=== PATIENT | female | born 1980 | race Caucasian/White ===

== ENCOUNTER 2017-04-06 13:18 | Emergency (ER) | payer MEDICARE, OTHER ==
--- NOTE | 2017-04-06 16:31 | DIAGNOSTIC IMAGING REPORT ---
PROCEDURE: CT ABDOMEN/PELVIS W/O CONTRAST INDICATION: FLANK PAIN TECHNIQUE: Axial CT images were obtained through the abdomen and pelvis without IV contrast. Coronal and sagittal reformations were created. COMPARISON: 08/14/2011 FINDINGS: 2 mm nonobstructing intrarenal calcification in the lower pole of the right kidney. No hydronephrosis, hydroureter, or ureteral calcification. No calcifications in the urinary bladder. Clear lung bases. Normal sized heart. No hiatal hernia. The unenhanced appearance of the liver, gallbladder, adrenal glands, kidneys, pancreas and spleen is normal. The abdominal aorta is normal in its course and caliber. There are no suspicious calcifications, retroperitoneal adenopathy or masses. The stomach, upper bowel loops, and mesentery are normal. Intact anterior abdominal wall. No free fluid or inflammation. Tiny vascular phleboliths in the pelvis. Tubal ligation clips are present. The left one is within the adnexa, the right one is between the uterus and urinary bladder at the midline (off of the of the fallopian tube). The unenhanced appearance of the uterus, ovaries, urinary bladder, pelvic vessels, and pelvic bowel loops is normal. Normal appendix. No suspicious calcifications, free pelvic fluid or mass. Intact osseous structures. Surgical clips in the left inguinal region. IMPRESSION: 1. 2 mm nonobstructing right lower pole intrarenal calculus. 2. No evidence of obstructive uropathy. 3. Status post tubal ligation. 4. Findings called to the emergency room. All CT scans at this facility use dose modulation, iterative reconstruction, and/or weight-based dosing when appropriate to reduce radiation dose to as low as reasonably achievable.
--- NOTE | 2017-04-06 16:33 | ED NURSING NOTES ---
Clinical Report - Nurses [facility] [address] [place] [address] 04/06/2017 13:20 Patient: MIRTHA ALEXANDER TRIAGE Triage time 13:26 13:Apr 06 2017. Acuity: LEVEL 3. Chief Complaint: ABDOMINAL PAIN and NAUSEA. Alert. No acute distress. SEPSIS SCREEN: Sepsis Screen. Negative (no infection suspected/documented). --13:34 Luís Blanchard R.N. 13:26 04/06/17. BP: 116/89. HR: 93. RR: 16. O2 saturation: 98% on room air. Temp: 98.3 F. Pain level now: 05/06. --13:34 Luís Blanchard R.N. Weight: 74.8 kg stated. Height/Length: 64 inches Per Patient. BMI: 28.3. --13:25 Luís Blanchard R.N. Medications Clonazepam. --13:30 Luís Blanchard R.N. Macrobid Oral. --13:30 Luís Blanchard R.N. Lomotil Oral. --13:57 Luís Blanchard R.N. Allergies Topamax. --13:29 Luís Blanchard R.N. BuSpar. --13:29 Luís Blanchard R.N. plastic tape . --13:29 Luís Blanchard R.N. Toradol. --13:29 Luís Blanchard R.N. Morphine IV. --13:29 Luís Blanchard R.N. Sulfa Antibiotics. --13:30 Luís Blanchard R.N. NSAIDs. --13:30 Luís Blanchard R.N. History Arrived by private vehicle. Historian: patient. Accompanied by friend. This started today. ( Pt has been "feeling under the weather" the past week. Pt is very fatigued. Reports R-sided flank pain that wraps around to the front of her abdomen, beneath her ribs.). PAST MEDICAL HX: Immunizations: up-to-date. Last normal menstrual period- March 27. SOCIAL HX: Light tobacco smoker. Alcohol use; consumes beer occasionally. History of drug use: marijuana. No recent travel. No infectious disease exposure. No known contact with a sick individual. ABUSE ASSESSMENT: Abuse assessment: The patient was asked "Do you feel safe in your home?". No report of abuse. SELF HARM ASSESSMENT: A self harm assessment was performed. The patient answered "no" to the question "Have you recently felt down, depressed, or hopeless?". FALL RISK ASSESSMENT: Fall risk assessment completed. No fall risk identified. NUTRITIONAL RISK ASSESSMENT: The nutritional risk assessment revealed no deficiencies. FUNCTIONAL ASSESSMENT: Functional assessment: no impairments noted. LEARNING NEEDS ASSESSMENT: The learning needs assessment revealed no barriers. SKIN INTEGRITY ASSESSMENT: Skin integrity risk assessment completed. No skin integrity risk identified. --13:34 Luís Blanchard R.N. ( Pt has been treated outpt for a UTI this past week, on Macrobid.). --14:02 Luís Blanchard R.N. PROBLEMS: Irritable Bowel Syndrome. Gastritis. Auto immune problem. Palpitations. Dental Pain. Dehydration. Supraventricular arrhythmia. Changed Mental Status. Cervical Strain. Myofascial Strain. Contusion. Tetanus Status. Allergic Reaction. . Seizure. Urinary Calculi. Pyelonephritis. Vaginal Bleeding. Pelvic Pain. UTI - Urinary Tract Infection. ADD - Attention Deficit Disorder. Depression. Post tramatic stress. Anxiety Reaction. Constipation. Seizure Disorder. Immunizations. Abdominal Pain. Nephrolithiasis. LNMP - Last Normal Menstrual Period. Endometriosis. Degenerative Joint Disease. Ovarian Cyst. --13:29 Luís Blanchard R.N. ADDITIONAL SURGERIES: Appendectomy. Bowel Surgery. Breast reducion. . Cysts removed from ovary. Endometriosis cauterizations. Fracture Repair. Lithotripsy. Tonsillectomy & Adenoidectomy. Vericose veins removed bilateral legs. --13:32 Luís Blanchard R.N. Interventions ID and allergy band on patient. To treatment room. --13:34 Luís Blanchard R.N. PHYSICAL ASSESSMENT Ambulatory to room. GENERAL / NEURO / PSYCH: Alert. Oriented X 4. Appears in distress. RESPIRATORY: Respirations not labored. CVS: Capillary refill less than 2 seconds. GI / : The patient has had nausea. Abdominal tenderness. Guarding present. No diarrhea. SKIN: Skin is pale. Skin is diaphoretic. --13:46 Luís Blanchard R.N. GI / : ( Pt reports dysuria and that urine has a foul smelling odor.). --13:59 Luís Blanchard R.N. NURSING PROGRESS NOTES 13:45 04/06/2017 Site #1 started via IV in the left antecubital space with an 20g angiocath, with aseptic technique and good blood return; one attempt. Blood drawn: rainbow set. Labeled in the presence of the patient and sent to the lab. Saline lock flushed with 10 mL saline. --13:45 Luís Blanchard R.N. The plan of care for this patient has been created. Patient gowned. Head of bed elevated. Reassurance given. Two patient identifiers checked. Call light placed in reach. Bed placed in lowest position. Patient ready for evaluation- chart flagged and OIL TANKER CAPTAIN notified. ( Pt sitting up, in obvious discomfort, small engine mechanic at bedside.). --13:47 Luís Blanchard R.N. 13:56 04/06/2017 Started bag #1 1000 mL IV Fluids IV NS (Saline); bolus of 1000 mL wide open via site #1. Allergies verified and confirmed 5 rights. IV patency established. IV site checked: no pain, redness, or swelling. IV flushed thoroughly pre- and post-medication administration. Completed per protocol. --13:56 Luís Blanchard R.N. 13:56 04/06/2017 Zofran (Ondansetron HCl) IVP 4 mg given over 1 minute(s) via site #1. Allergies verified and confirmed 5 rights. IV patency established. IV site checked: no pain, redness, or swelling. IV flushed thoroughly pre- and post-medication administration. IVP given by RN. --13:56 Luís Blanchard R.N. 14:32 04/06/2017 Benadryl (DiphenhydrAMINE HCl) IVP 50 mg given over 2 minute(s) via site #1. Allergies verified, confirmed 5 rights and sedative warning given to the patient and patient's small engine mechanic. IV patency established. IV site checked: no pain, redness, or swelling. IV flushed thoroughly pre- and post-medication administration. IVP given by RN. --14:32 Luís Blanchard R.N. 14:32 04/06/17. BP: 108/73. HR: 77. RR: 18. O2 saturation: 100% on room air. Pain level now: 06/05. --14:32 Luís Blanchard R.N. Patient transported to [place] by stretcher with tech. (14:37 Apr 06 2017). ( Pt reporting her pain is slowly increasing, verified NSAID allergy, Pt stated that in the past she has been able to tolerate Toradol with Benadryl. Medications administered, VSS.). --14:38 Luís Blanchard R.N. 14:32 04/06/2017 Zofran IVP Response: no adverse reaction. --14:57 Luís Blanchard R.N. 14:36 04/06/2017 Toradol IVP 30 mg given over 2 minute(s) via site #1. Allergies verified and confirmed 5 rights. IV patency established. IV site checked: no pain, redness, or swelling. IV flushed thoroughly pre- and post-medication administration. IVP given by RN. --14:36 Luís Blanchard R.N. Patient returned from [place] by stretcher with tech. (15:Apr 06 2017). --15:01 Luís Blanchard R.N. ( Pt resting in bed, IVF finished infusing, Pt reports she feels the same, denies current needs.). --15:03 Luís Blanchard R.N. 15:03 04/06/2017 IV Fluids IV NS Discontinued: bag #1 infused. Total amount infused: 1000 mL. IV patency established. IV site checked: no pain, redness, or swelling. IV flushed thoroughly. --15:03 Luís Blanchard R.N. <<STRICKEN ENTRY-- Hemoccult test positive. control room helper check passed. (POC test reference range: negative). Critical value relayed to ED by ZANDER Mendoza. Critical value received by Luís TAVERAS. Hgb: 4.9. Hct: 14.6. Critical value read back. Verified lab result. ED physician notifed of critical value. Orders were received. --15:37 Luís Blanchard R.N. --END STRIKE>> Charted On Wrong Patient --15:38 Luís Blanchard R.N. ( Pt resting in bed, small engine mechanic at bedside, VSS, waiting for results of CT and blood work, Pt denies needs, ice pack provided per Pt's request.). --15:49 Luís Blanchard R.N. 15:48 04/06/17. BP: 111/69. HR: 63. RR: 16. O2 saturation: 100%. Pain level now: 05/06. --15:49 Luís Blanchard R.N. DISPOSITION / DISCHARGE Condition at departure: improved and stable. The goals identified in the patient's plan of care were met. No learning barriers present. Discharge instructions provided and reviewed with small engine mechanic and the patient. Reviewed warnings (Pt instructed not to drive while taking [place] or today d/t Benadryl administraion). Reviewed medication(s) side effects, precautions, dosing and course information. Prescription(s) given to the patient. Reviewed referral to a primary care physician for followup. Patient and small engine mechanic verbalized understanding. Written instructions provided in [place]. The patient was discharged by the nurse practitioner. She was discharged home and accompanied by small engine mechanic. She left the Emergency Department ambulatory and via private vehicle. Automobile Sales Consultant driving. ( Pt dc'd in stable condition, ambulatory, VSS, verbalized understanding of DC instructions.). --16:48 Luís Blanchard R.N. Departure time: 16:48 Apr 06 2017. --16:48 Luís Blanchard R.N. 16:48 04/06/17. BP: 121/76. HR: 69. RR: 14. O2 saturation: 98% on room air. Temp: 98 F. Pain level now: 04/05. --16:48 Luís Blanchard R.N. Locked/Released at 04/06/2017 18:01 by Luís Blanchard R.N.
--- NOTE | 2017-04-06 16:33 | ED ORDER SUMMARY ---
..... Patient: MIRTHA ALEXANDER OrderSheet [facility] VisitID: [id number] [address] [place] [address] 36y, F Registration Date/Time: 04/06/2017 ORDER SHEET Weight: 74.8 kg (stated) Allergies: Topamax, BuSpar, plastic tape , Toradol, Morphine IV, Sulfa Antibiotics, NSAIDs GENERAL ORDERS: CBC w Diff Urgent (13:35 04/06/2017 HBivens A.R.N.P.) (Ack 13:41 OSnell) (13:45 MCook R.N.) CMP Urgent (13:35 04/06/2017 HBivens A.R.N.P.) (Ack 13:41 OSnell) (13:45 MCook R.N.) UA-Culture if indicated Urgent (13:35 04/06/2017 HBivens A.R.N.P.) (Ack 13:41 OSnell) (13:45 MCook R.N.) Amylase Urgent (13:35 04/06/2017 HBivens A.R.N.P.) (Ack 13:41 OSnell) (13:45 MCook R.N.) Lipase Urgent (13:35 04/06/2017 HBivens A.R.N.P.) (Ack 13:42 OSnell) (13:45 MCook R.N.) Urine Urgent (13:35 04/06/2017 HBivens A.R.N.P.) (Ack 13:42 OSnell) (13:45 MCook R.N.) Urine Drug Screen Urgent (13:35 04/06/2017 HBivens A.R.N.P.) (Ack 13:42 OSnell) (13:45 MCook R.N.) CT Abd/Pel wo Cont Urgent (14:20 04/06/2017 HBivens A.R.N.P.) (Ack 14:23 OSnell) (15:03 MCook R.N.) MEDICATION ORDERS: IV FLUIDS: IV NS : initial bolus 1000 mL (1000 mL/hr), then none - (NOW) (13:35 04/06/2017 HBivens A.R.N.P.) (13:56 MCook R.N.) Zofran IV 4 mg (NOW) (13:35 04/06/2017 HBivens A.R.N.P.) (13:56 MCook R.N.) IV Saline Lock (13:35 04/06/2017 HBivens A.R.N.P.) (13:45 MCook R.N.) Toradol IV 30 mg (NOW) (14:27 04/06/2017 HBivens A.R.N.P.) (14:36 MCook R.N.) Benadryl IV 50 mg (NOW) (14:27 04/06/2017 HBivens A.R.N.P.) (14:32 MCook R.N.) ORDER SHEET NOTES: [Electronically signed by Luís Blanchard R.N. (18:01 04/06/2017)] [Electronically signed by Teri ReyesR.N.P. (18:45 04/06/2017)] [Electronically locked/signed by Luís Blanchard R.N. (18:01 04/06/2017)]
--- NOTE | 2017-04-06 16:33 | ED CLINICAL REPORT ---
Clinical Report - Physicians/Mid Levels [facility] [address] [place] [address] 04/06/2017 13:20 Patient: MIRTHA ALEXANDER Time Seen: 13:30; initial patient contact, initial documentation, patient care assumed. Arrived- By private vehicle. Historian- patient. HISTORY OF PRESENT ILLNESS Chief Complaint: ABDOMINAL PAIN. At its maximum, severity described as severe. When seen in the E.D., severity described as severe. Modifying factors. Not worsened by anything. Not relieved by anything. It is described as "pain" and it is described as located in the right flank and the right abdomen and right lower quadrant and radiating to the abdomen (pain starts in R flank area and wraps around to abd). This started today and is still present. It was abrupt in onset. The patient has had nausea. No loss of appetite, vomiting or diarrhea. No additional abdominal pain. No recent travel. Similar symptoms previously: Occasionally, as bad. ( feels same as when she had kidney stone or infection). Recent medical care: Not recently seen/assessed. REVIEW OF SYSTEMS No constipation, black stools, hematemesis, difficulty with urination or pain with urination. No urinary frequency, bloody stools, fever, chest pain or difficulty breathing. Denies current . urine has foul smell, 'mediciney' or 'sulfa' like and it was darker than normal. All systems otherwise negative, except as recorded above. PAST HISTORY See nurses notes. PROBLEMS: Irritable Bowel Syndrome. Gastritis. Auto immune problem. Palpitations. Dental Pain. Dehydration. Supraventricular arrhythmia. Changed Mental Status. Cervical Strain. Myofascial Strain. Contusion. Tetanus Status. Allergic Reaction. . Seizure. Urinary Calculi. Pyelonephritis. Vaginal Bleeding. Pelvic Pain. UTI - Urinary Tract Infection. ADD - Attention Deficit Disorder. Depression. Post tramatic stress. Anxiety Reaction. Constipation. Seizure Disorder. Immunizations. Abdominal Pain. Nephrolithiasis. LNMP - Last Normal Menstrual Period. Endometriosis. Degenerative Joint Disease. Ovarian Cyst. --13:29 Luís Blanchard R.N. SOCIAL HISTORY Light tobacco smoker. Occasional alcohol use. History of occasional drug use: marijuana. No recent travel. Is a local resident. FAMILY HISTORY Negative. ADDITIONAL NOTES The nursing notes have been reviewed with agreement regarding the chief complaint, HPI, ROS, PMH and patient medications and allergies. PHYSICAL EXAM Vital Signs: 04/06/2017 13:26 BP: 116/89. HR: 93. RR: 16. O2 saturation: 98%. Temp: 98.3 F. Pain level now: 05/06. Have been reviewed as normal and appear to be correct. Appearance: Alert. Oriented X3. No acute distress. Eyes: Pupils equal, round and reactive to light. Eyes normal inspection. Neck: Normal inspection. Neck supple. CVS: Normal heart rate and rhythm. Heart sounds normal. Pulses normal. Respiratory: No respiratory distress. Breath sounds normal. Chest nontender. Abdomen: Soft and nontender. Bowel sounds normal. No organomegaly. No mass. Back: Abnormal inspection. Mild CVA tenderness on the right. Skin: Skin warm and dry. Normal skin color. No rash. Normal skin turgor. Extremities: Extremities exhibit normal ROM. No lower extremity edema. Neuro: Oriented X 3. No motor deficit. No sensory deficit. LABS, X-RAYS, AND EKG Abdominal CT: No acute disease. IMPRESSION: 1. 2 mm nonobstructing right lower pole intrarenal calculus. 2. No evidence of obstructive uropathy. 3. Status post tubal ligation. 4. Findings called to the emergency room. All CT scans at this facility use dose modulation, iterative reconstruction, and/or weight-based dosing when appropriate to reduce radiation dose to as low as reasonably achievable. Electronically Final signed by:Sury Ingram MD 04/06/2017 4:26:35 PM. The study was interpreted by the radiologist and discussed with the radiologist. Interpretation time: 1630. Laboratory Tests: UA-Culture if indicated: (BRIGIDA: 04/06/2017 13:30) ( MsgRcvd 04/06/2017 13:51) Final results Test Result Flag Units (Reference) URINE COLOR YELLOW URINE APPEARANCE SL CLOUDY URINE GLUCOSE NEGATIVE (NEGATIVE) URINE BILIRUBIN 3+ (NEGATIVE) URINE BILIRUBIN ICTOTEST POSITIVE (NEGATIVE) URINE KETONE NEGATIVE (NEGATIVE) URINE SPECIFIC GRAVITY 1.015 (1.010-1.030) URINE PH 6.5 (5.0-8.0) URINE PROTEIN NEGATIVE (NEGATIVE) URINE UROBILINOGEN 0.2 EU/dL (0.2-1.0) URINE NITRITE NEGATIVE (NEGATIVE) URINE BLOOD NEGATIVE (NEGATIVE) URINE LEUK ESTERASE NEGATIVE (NEGATIVE) URINE RBC NONE SEEN rbc/hpf (0-1) URINE WBC 1-3 wbc/hpf (0-1) URINE EPITHELIAL CELLS 1-3 EPI/hpf (0-5) URINE BACTERIA MODERATE (2+ TO 3+) (NONE SEEN) URINE COMMENT CULTURE INDICATED URINE CULTURES ARE SET-UP BASED ON THE FOLLOWING CRITERIA:POSITIVE NITRITEPOSITIVE LEUKOCYTE ESTERASEGREATER THAN 10 WHITE BLOOD CELLSMODERATE (2+) OR GREATER BACTERIA Urine: (BRIGIDA: 04/06/2017 13:30) ( [facility] 04/06/2017 13:45) Final results Test Result Flag Units (Reference) URINE NEGATIVE CBC w Diff: (BRIGIDA: 04/06/2017 13:45) ( [facility] 04/06/2017 13:55) Final results Test Result Flag Units (Reference) WHITE BLOOD COUNT 8.2 K/uL (4.5-11.5) RED BLOOD COUNT 4.02 M/uL (4.00-5.20) HEMOGLOBIN 12.4 gm/dL (12.0-16.0) HEMATOCRIT 37.1 % (36.0-46.0) MEAN CELL VOLUME 92 fL (80-100) MEAN CORPUSCULAR HGB 31 pg (26-34) MEAN CORPUSCULAR HGB CONC 34 g/dL (31-37) RED CELL DISTRIBUTION WIDTH 13.6 % (11.6-14.8) PLATELET COUNT 436 H K/uL (150-400) NEUTROPHIL % 61.2 % (50-75) LYMPH % 28.4 % (25-40) MONO % 7.3 % (3-14) EOSINOPHIL % 2.6 % (0-4) BASOPHIL % 0.5 % (0-2) Urine Drug Screen: (BRIGIDA: 04/06/2017 13:30) ( MsgRcvd 04/06/2017 13:59) Final results Test Result Flag Units (Reference) AMPHETAMINE/METHAMPHETAMINE NEGATIVE (NEGATIVE) BARBITURATE NEGATIVE (NEGATIVE) BENZODIAZEPINE NEGATIVE (NEGATIVE) CANNABINOID POSITIVE H (NEGATIVE) COCAINE NEGATIVE (NEGATIVE) ECSTASY NEGATIVE (NEGATIVE) METHADONE NEGATIVE (NEGATIVE) OPIATE NEGATIVE (NEGATIVE) The urine drug screen is a qualitative screening test fordrug overdose and abuse. All screen results should beconsidered as presumptive.Drugs screened for are as follows:BenzodiazepinesCocaineAmphetamines/MetamphetaminesTHC (Tetrahydrocannabinol)OpiatesBarbituratesEcstasyMethadonePositive results are unconfirmed. For confirmation, notifythe lab for the specimen to be sent to the reference lab.All confirmations must be performed by a differentmethodology.The ingestion of natural herbal and plant productscontaining Ephedra/Ephedra metabolites can produce in urineone or more substances capable of cross reacting withamphetamine/methamphetamine immunoassays. These testsprovide a preliminary result only. A more specificalternative chemical method must be used to obtain aconfirmed analytical result. CMP: (BRIGIDA: 04/06/2017 13:45) ( MsgRcvd 04/06/2017 14:14) Final results Test Result Flag Units (Reference) GLUCOSE 94 mg/dL (70-110) BUN 11 mg/dL (7-18) CREATININE 0.7 mg/dL (0.6-1.3) Estimated GFR >60 mL/min Estimated GFR- >60 mL/min Note: Persistent reduction over 3 months in eGFR<60 mL/min/1.73 m2 defines CKD. Patients with eGFR values>=60 mL/min/1.73 m2 may also have CKD if evidence ofpersistent proteinuria. Additional information may be foundat www.kidney.org. SODIUM 144 mmol/L (136-145) POTASSIUM 4.1 mmol/L (3.5-5.1) CHLORIDE 107 mmol/L (98-107) CARBON DIOXIDE 27 mmol/L (21-32) CALCIUM 8.7 mg/dL (8.5-10.1) TOTAL PROTEIN 7.6 g/dL (6.4-8.2) ALBUMIN 3.6 g/dL (3.3-5.0) BILIRUBIN, TOTAL 0.3 mg/dL (0.0-1.0) ALKALINE PHOSPHATASE 75 U/L (46-116) AST (SGOT) 11 L U/L (15-37) ALT (SGPT) 25 U/L (12-78) LIPASE 156 U/L (73-393) AMYLASE 29 U/L (25-115) . PROGRESS AND PROCEDURES Course of Care: 1419. lab results discussed and tx plan, pt would like to do ct to look for kidney stone 1520. awaiting ct and results. 04/06/2017 15:48 BP: 111/69. HR: 63. RR: 16. O2 saturation: 100%. Pain level now: 6/10. Vital Signs: have been reviewed as normal and appear to be correct. Patient counseled in person regarding the patient's stable condition, test results and diagnosis. 16:31. Differential Diagnosis: I considered gastritis, gastroenteritis, peptic ulcer disease, gastroesophageal reflux disease, mesenteric lymphadenitis, diverticulitis, colon cancer, small bowel obstruction, adhesions, biliary colic, cholecystitis, cholelithiasis, hepatitis, pancreatitis, common bile duct obstruction, cholangitis, urinary tract infection, ureterolithiasis, ovarian cyst, ovarian torsion, , pelvic inflammatory disease and viral syndrome as a possible cause of abdominal pain in this patient. This is a partial list of diagnoses considered. Above considerations are based on history, physical exam, reassessment and laboratory data. Differential diagnosis was discussed with patient. Disposition: Discharged home in good and improved condition (16:33). Condition: good and stable. CLINICAL IMPRESSION Ureterolithiasis (single stone) in the right kidney with renal colic. No hydronephrosis, acute pyelonephritis, urinary tract infection or hematuria. INSTRUCTIONS Drink plenty of fluids for the next 24 hours until better. (strain all urine). Warnings: GENERAL WARNINGS: Return or contact your physician immediately if your condition worsens or changes unexpectedly, if not improving as expected, or if other problems arise. SPECIFICALLY, return if you develop pain in the abdomen or pelvis, fever, the inability to keep fluids down, blood in vomitus, blood in diarrhea, fainting or lightheadedness. Prescription Medications: Zofran 4 mg: Take 1 orally every six hours as needed for nausea/vomiting. Dispense ten (10). No refills. Substitution is permissible. [place] 5 mg / 325 mg tablets: take 1 to 2 orally every 6 hours as needed for pain. Dispense fifteen (15). No refills. Substitution is permissible. Flomax 0.4 mg: take 1 orally every 24 hours. Dispense fifteen (15). No refills. Substitution is permissible. Follow-up: Follow up with your doctor in about two days even if well. Call for an appointment. Summary of care provided to patient. Understanding of the discharge instructions verbalized by patient. (Electronically signed by Teri Reyes A.R.N.P. 04/06/2017 18:45)
--- NOTE | 2017-04-06 16:33 | ED NURSING NOTES ---
Clinical Report - Nurses [address] [place] [address] 04/06/2017 13:20 Patient: MIRTHA ALEXANDER TRIAGE Triage time 13:26 13:Apr 06 2017. Acuity: LEVEL 3. Chief Complaint: ABDOMINAL PAIN and NAUSEA. Alert. No acute distress. SEPSIS SCREEN: Sepsis Screen. Negative (no infection suspected/documented). --13:34 Luís Blanchard R.N. 13:26 04/06/17. BP: 116/89. HR: 93. RR: 16. O2 saturation: 98% on room air. Temp: 98.3 F. Pain level now: 05/06. --13:34 Luís Blanchard R.N. Weight: 74.8 kg stated. Height/Length: 64 inches Per Patient. BMI: 28.3. --13:25 Luís Blanchard R.N. Medications Clonazepam. --13:30 Luís Blanchard R.N. Macrobid Oral. --13:30 Luís Blanchard R.N. Lomotil Oral. --13:57 Luís Blanchard R.N. Allergies Topamax. --13:29 Luís Blanchard R.N. BuSpar. --13:29 Luís Blanchard R.N. plastic tape . --13:29 Luís Blanchard R.N. Toradol. --13:29 Luís Blanchard R.N. Morphine IV. --13:29 Luís Blanchard R.N. Sulfa Antibiotics. --13:30 Luís Blanchard R.N. NSAIDs. --13:30 Luís Blanchard R.N. History Arrived by private vehicle. Historian: patient. Accompanied by friend. This started today. ( Pt has been "feeling under the weather" the past week. Pt is very fatigued. Reports R-sided flank pain that wraps around to the front of her abdomen, beneath her ribs.). PAST MEDICAL HX: Immunizations: up-to-date. Last normal menstrual period- March 27. SOCIAL HX: Light tobacco smoker. Alcohol use; consumes beer occasionally. History of drug use: marijuana. No recent travel. No infectious disease exposure. No known contact with a sick individual. ABUSE ASSESSMENT: Abuse assessment: The patient was asked "Do you feel safe in your home?". No report of abuse. SELF HARM ASSESSMENT: A self harm assessment was performed. The patient answered "no" to the question "Have you recently felt down, depressed, or hopeless?". FALL RISK ASSESSMENT: Fall risk assessment completed. No fall risk identified. NUTRITIONAL RISK ASSESSMENT: The nutritional risk assessment revealed no deficiencies. FUNCTIONAL ASSESSMENT: Functional assessment: no impairments noted. LEARNING NEEDS ASSESSMENT: The learning needs assessment revealed no barriers. SKIN INTEGRITY ASSESSMENT: Skin integrity risk assessment completed. No skin integrity risk identified. --13:34 Luís Blanchard R.N. ( Pt has been treated outpt for a UTI this past week, on Macrobid.). --14:02 Luís Blanchard R.N. PROBLEMS: Irritable Bowel Syndrome. Gastritis. Auto immune problem. Palpitations. Dental Pain. Dehydration. Supraventricular arrhythmia. Changed Mental Status. Cervical Strain. Myofascial Strain. Contusion. Tetanus Status. Allergic Reaction. . Seizure. Urinary Calculi. Pyelonephritis. Vaginal Bleeding. Pelvic Pain. UTI - Urinary Tract Infection. ADD - Attention Deficit Disorder. Depression. Post tramatic stress. Anxiety Reaction. Constipation. Seizure Disorder. Immunizations. Abdominal Pain. Nephrolithiasis. LNMP - Last Normal Menstrual Period. Endometriosis. Degenerative Joint Disease. Ovarian Cyst. --13:29 Luís Blanchard R.N. ADDITIONAL SURGERIES: Appendectomy. Bowel Surgery. Breast reducion. . Cysts removed from ovary. Endometriosis cauterizations. Fracture Repair. Lithotripsy. Tonsillectomy & Adenoidectomy. Vericose veins removed bilateral legs. --13:32 Luís Blanchard R.N. Interventions ID and allergy band on patient. To treatment room. --13:34 Luís Blanchard R.N. PHYSICAL ASSESSMENT Ambulatory to room. GENERAL / NEURO / PSYCH: Alert. Oriented X 4. Appears in distress. RESPIRATORY: Respirations not labored. CVS: Capillary refill less than 2 seconds. GI / : The patient has had nausea. Abdominal tenderness. Guarding present. No diarrhea. SKIN: Skin is pale. Skin is diaphoretic. --13:46 Luís Blanchard R.N. GI / : ( Pt reports dysuria and that urine has a foul smelling odor.). --13:59 Luís Blanchard R.N. NURSING PROGRESS NOTES 13:45 04/06/2017 Site #1 started via IV in the left antecubital space with an 20g angiocath, with aseptic technique and good blood return; one attempt. Blood drawn: rainbow set. Labeled in the presence of the patient and sent to the lab. Saline lock flushed with 10 mL saline. --13:45 Luís Blanchard R.N. The plan of care for this patient has been created. Patient gowned. Head of bed elevated. Reassurance given. Two patient identifiers checked. Call light placed in reach. Bed placed in lowest position. Patient ready for evaluation- chart flagged and SERVICES MGR notified. ( Pt sitting up, in obvious discomfort, keypuncher at bedside.). --13:47 Luís Blanchard R.N. 13:56 04/06/2017 Started bag #1 1000 mL IV Fluids IV NS (Saline); bolus of 1000 mL wide open via site #1. Allergies verified and confirmed 5 rights. IV patency established. IV site checked: no pain, redness, or swelling. IV flushed thoroughly pre- and post-medication administration. Completed per protocol. --13:56 Luís Blanchard R.N. 13:56 04/06/2017 Zofran (Ondansetron HCl) IVP 4 mg given over 1 minute(s) via site #1. Allergies verified and confirmed 5 rights. IV patency established. IV site checked: no pain, redness, or swelling. IV flushed thoroughly pre- and post-medication administration. IVP given by RN. --13:56 Luís Blanchard R.N. 14:32 04/06/2017 Benadryl (DiphenhydrAMINE HCl) IVP 50 mg given over 2 minute(s) via site #1. Allergies verified, confirmed 5 rights and sedative warning given to the patient and patient's keypuncher. IV patency established. IV site checked: no pain, redness, or swelling. IV flushed thoroughly pre- and post-medication administration. IVP given by RN. --14:32 Luís Blanchard R.N. 14:32 04/06/17. BP: 108/73. HR: 77. RR: 18. O2 saturation: 100% on room air. Pain level now: 06/05. --14:32 Luís Blanchard R.N. Patient transported to [place] by stretcher with tech. (14:37 Apr 06 2017). ( Pt reporting her pain is slowly increasing, verified NSAID allergy, Pt stated that in the past she has been able to tolerate Toradol with Benadryl. Medications administered, VSS.). --14:38 Luís Blanchard R.N. 14:32 04/06/2017 Zofran IVP Response: no adverse reaction. --14:57 Luís Blanchard R.N. 14:36 04/06/2017 Toradol IVP 30 mg given over 2 minute(s) via site #1. Allergies verified and confirmed 5 rights. IV patency established. IV site checked: no pain, redness, or swelling. IV flushed thoroughly pre- and post-medication administration. IVP given by RN. --14:36 Luís Blanchard R.N. Patient returned from [place] by stretcher with tech. (15:Apr 06 2017). --15:01 Luís Blanchard R.N. ( Pt resting in bed, IVF finished infusing, Pt reports she feels the same, denies current needs.). --15:03 Luís Blanchard R.N. 15:03 04/06/2017 IV Fluids IV NS Discontinued: bag #1 infused. Total amount infused: 1000 mL. IV patency established. IV site checked: no pain, redness, or swelling. IV flushed thoroughly. --15:03 Luís Blanchard R.N. <<STRICKEN ENTRY-- Hemoccult test positive. loss control engineer check passed. (POC test reference range: negative). Critical value relayed to ED by ZANDER Mendoza. Critical value received by Luís TAVERAS. Hgb: 4.9. Hct: 14.6. Critical value read back. Verified lab result. ED physician notifed of critical value. Orders were received. --15:37 Luís Blanchard R.N. --END STRIKE>> Charted On Wrong Patient --15:38 Luís Blanchard R.N. ( Pt resting in bed, keypuncher at bedside, VSS, waiting for results of CT and blood work, Pt denies needs, ice pack provided per Pt's request.). --15:49 Luís Blanchard R.N. 15:48 04/06/17. BP: 111/69. HR: 63. RR: 16. O2 saturation: 100%. Pain level now: 05/06. --15:49 Luís Blanchard R.N. DISPOSITION / DISCHARGE Condition at departure: improved and stable. The goals identified in the patient's plan of care were met. No learning barriers present. Discharge instructions provided and reviewed with keypuncher and the patient. Reviewed warnings (Pt instructed not to drive while taking [place] or today d/t Benadryl administraion). Reviewed medication(s) side effects, precautions, dosing and course information. Prescription(s) given to the patient. Reviewed referral to a primary care physician for followup. Patient and keypuncher verbalized understanding. Written instructions provided in Tunisian. The patient was discharged by the nurse practitioner. She was discharged home and accompanied by keypuncher. She left the Emergency Department ambulatory and via private vehicle. Track Gre[employer] driving. ( Pt dc'd in stable condition, ambulatory, VSS, verbalized understanding of DC instructions.). --16:48 Luís Blanchard R.N. Departure time: 16:48 Apr 06 2017. --16:48 Luís Blanchard R.N. 16:48 04/06/17. BP: 121/76. HR: 69. RR: 14. O2 saturation: 98% on room air. Temp: 98 F. Pain level now: 04/05. --16:48 Luís Blanchard R.N. Locked/Released at 04/06/2017 18:01 by Luís Blanchard R.N.
--- NOTE | 2017-04-06 16:33 | ED ORDER SUMMARY ---
..... Patient: MIRTHA ALEXANDER OrderSheet [facility] VisitID: [id number] [address] [place] [address] 36y, F Registration Date/Time: 04/06/2017 ORDER SHEET Weight: 74.8 kg (stated) Allergies: Topamax, BuSpar, plastic tape , Toradol, Morphine IV, Sulfa Antibiotics, NSAIDs GENERAL ORDERS: CBC w Diff Urgent (13:35 04/06/2017 HBivens A.R.N.P.) (Ack 13:41 OSnell) (13:45 MCook R.N.) CMP Urgent (13:35 04/06/2017 HBivens A.R.N.P.) (Ack 13:41 OSnell) (13:45 MCook R.N.) UA-Culture if indicated Urgent (13:35 04/06/2017 HBivens A.R.N.P.) (Ack 13:41 OSnell) (13:45 MCook R.N.) Amylase Urgent (13:35 04/06/2017 HBivens A.R.N.P.) (Ack 13:41 OSnell) (13:45 MCook R.N.) Lipase Urgent (13:35 04/06/2017 HBivens A.R.N.P.) (Ack 13:42 OSnell) (13:45 MCook R.N.) Urine Urgent (13:35 04/06/2017 HBivens A.R.N.P.) (Ack 13:42 OSnell) (13:45 MCook R.N.) Urine Drug Screen Urgent (13:35 04/06/2017 HBivens A.R.N.P.) (Ack 13:42 OSnell) (13:45 MCook R.N.) CT Abd/Pel wo Cont Urgent (14:20 04/06/2017 HBivens A.R.N.P.) (Ack 14:23 OSnell) (15:03 MCook R.N.) MEDICATION ORDERS: IV FLUIDS: IV NS : initial bolus 1000 mL (1000 mL/hr), then none - (NOW) (13:35 04/06/2017 HBivens A.R.N.P.) (13:56 MCook R.N.) Zofran IV 4 mg (NOW) (13:35 04/06/2017 HBivens A.R.N.P.) (13:56 MCook R.N.) IV Saline Lock (13:35 04/06/2017 HBivens A.R.N.P.) (13:45 MCook R.N.) Toradol IV 30 mg (NOW) (14:27 04/06/2017 HBivens A.R.N.P.) (14:36 MCook R.N.) Benadryl IV 50 mg (NOW) (14:27 04/06/2017 HBivens A.R.N.P.) (14:32 MCook R.N.) ORDER SHEET NOTES: [Electronically signed by Luís Blanchard R.N. (18:01 04/06/2017)] [Electronically signed by Teri ReyesR.N.P. (18:45 04/06/2017)] [Electronically locked/signed by Luís Blanchard R.N. (18:01 04/06/2017)]
--- NOTE | 2017-04-06 18:45 | ED DISCHARGE INSTRUCTIONS ---
Patient: MIRTHA ALEXANDER General Instructions [facility] VisitID: [id number] [address] [place] [address] 36y, F Registration Date/Time: 04/06/2017 Ureterolithiasis (single stone) in the right kidney with renal colic. No hydronephrosis, acute pyelonephritis, urinary tract infection or hematuria. INSTRUCTIONS Drink plenty of fluids for the next 24 hours until better. (strain all urine). Warnings: GENERAL WARNINGS: Return or contact your physician immediately if your condition worsens or changes unexpectedly, if not improving as expected, or if other problems arise. SPECIFICALLY, return if you develop pain in the abdomen or pelvis, fever, the inability to keep fluids down, blood in vomitus, blood in diarrhea, fainting or lightheadedness. Prescription Medications: Zofran 4 mg: Take 1 orally every six hours as needed for nausea/vomiting. Dispense ten (10). No refills. Substitution is permissible. [place] 5 mg / 325 mg tablets: take 1 to 2 orally every 6 hours as needed for pain. Dispense fifteen (15). No refills. Substitution is permissible. Flomax 0.4 mg: take 1 orally every 24 hours. Dispense fifteen (15). No refills. Substitution is permissible. Follow-up: Follow up with your doctor in about two days even if well. Call for an appointment. Summary of care provided to patient. Understanding of the discharge instructions verbalized by patient. ADDITIONAL INFORMATION Kidney Stone (W/ Colic) The sharp cramping pain and nausea/vomiting that you have is due to a small stone which has formed in the kidney and is now passing down a narrow tube (ureter) on its way to your bladder. Once it reaches your bladder, the pain will stop. The stone may pass in your urine stream in one piece. [The size may be 1/16" to 1/4" (1-6mm)]. Or, the stone may also break up into carmelina fragments which you may not even notice. Once you have had a kidney stone, you are at risk for developing another one in the future. Home Care: Drink plenty of fluids (at least 8 to 10 glasses of water a day). Most stones will pass on their own, but may take from a few hours to a few days. Sometimes the stone is too large to pass by itself and special methods will have to be used to remove the stone. Each time you urinate, do so in a jar. Pour the urine from the jar through the strainer and into the toilet. Continue doing this until 24 hours after your pain stops. By then, if there was a kidney stone, it should pass from your bladder. Some stones dissolve into sand-like particles and pass right through the strainer. In that case, you wont ever see a stone. Save any stone that you find in the strainer and bring it to your doctor for analysis. It may be possible to prevent certain types of stones from forming. Therefore, it is important to know what kind of stone you have. Try to stay as active as possible since this will help the stone pass. Do not stay in bed unless your pain prevents you from getting up. You may notice a red, pink or brown color to your urine. This is normal while passing a kidney stone. Follow Up with your doctor or return to this facility if the pain lasts more than 48 hours. Get Prompt Medical Attention if any of the following occur: Pain that is not controlled by the medicine given Repeated vomiting or unable to keep down fluids Weakness, dizziness or fainting Fever of 100.4F (38C) or higher, or as directed by your healthcare provider Passage of solid red or brown urine (can't see through it) or urine with lots of blood clots Unable to pass urine for 8 hours and increasing bladder pressure Ondansetron Oral disintegrating tablet What is this medicine? ONDANSETRON (on JAGRUTI se eugene) is used to treat nausea and vomiting caused by chemotherapy. It is also used to prevent or treat nausea and vomiting after surgery. How should I use this medicine? These tablets are made to dissolve in the mouth. Do not try to push the tablet through the foil backing. With dry hands, peel away the foil backing and gently remove the tablet. Place the tablet in the mouth and allow it to dissolve, then swallow. While you may take these tablets with water, it is not necessary to do so. Talk to your customs compliance analyst regarding the use of this medicine in children. Special care may be needed. What side effects may I notice from receiving this medicine? Side effects that you should report to your doctor or health intensive care medicine specialist as soon as possible: allergic reactions like skin rash, itching or hives, swelling of the face, lips, or tongue breathing problems dizziness fast or irregular heartbeat feeling faint or lightheaded, falls fever and chills swelling of the hands and feet tightness in the chest Side effects that usually do not require medical attention (report to your doctor or health intensive care medicine specialist if they continue or are bothersome): constipation or diarrhea headache What may interact with this medicine? Do not take this medicine with any of the following medications: -apomorphine -cisapride -dofetilide -dronedarone -pimozide -thioridazine -ziprasidone This medicine may also interact with the following medications: -carbamazepine -phenytoin -rifampicin -tramadol -other medicines that prolong the QT interval (cause an abnormal heart rhythm) What if I miss a dose? If you miss a dose, take it as soon as you can. If it is almost time for your next dose, take only that dose. Do not take double or extra doses. Where should I keep my medicine? Keep out of the reach of children. Store between 2 and 30 degrees C (36 and 86 degrees F). Throw away any unused medicine after the expiration date. What should I tell my health care provider before I take this medicine? They need to know if you have any of these conditions: heart disease history of irregular heartbeat liver disease low levels of magnesium or potassium in the blood an unusual or allergic reaction to ondansetron, granisetron, other medicines, foods, dyes, or preservatives or trying to get breast-feeding What should I watch for while using this medicine? Check with your doctor or health intensive care medicine specialist as soon as you can if you have any sign of an allergic reaction. Hydrocodone Bitartrate, Acetaminophen Oral tablet What is this medicine? ACETAMINOPHEN; HYDROCODONE (a set a CJ bam fen; moni droe KOE done) is a pain reliever. It is used to treat mild to moderate pain. How should I use this medicine? Take this medicine by mouth. Swallow it with a full glass of water. Follow the directions on the prescription label. If the medicine upsets your stomach, take the medicine with food or milk. Do not take more than you are told to take. Talk to your customs compliance analyst regarding the use of this medicine in children. This medicine is not approved for use in children. What side effects may I notice from receiving this medicine? Side effects that you should report to your doctor or health intensive care medicine specialist as soon as possible: allergic reactions like skin rash, itching or hives, swelling of the face, lips, or tongue breathing problems confusion feeling faint or lightheaded, falls stomach pain yellowing of the eyes or skin Side effects that usually do not require medical attention (report to your doctor or health intensive care medicine specialist if they continue or are bothersome): nausea, vomiting stomach upset What may interact with this medicine? alcohol antihistamines isoniazid medicines for depression, anxiety, or psychotic disturbances medicines for sleep muscle relaxants naltrexone narcotic medicines (opiates) for pain phenobarbital ritonavir tramadol What if I miss a dose? If you miss a dose, take it as soon as you can. If it is almost time for your next dose, take only that dose. Do not take double or extra doses. Where should I keep my medicine? Keep out of the reach of children. This medicine can be abused. Keep your medicine in a safe place to protect it from theft. Do not share this medicine with anyone. Selling or giving away this medicine is dangerous and against the law. Store at room temperature between 15 and 30 degrees C (59 and 86 degrees F). Protect from light. Keep container tightly closed. Throw away any unused medicine after the expiration date. Discard unused medicine and used packaging carefully. Pets and children can be harmed if they find used or lost packages. What should I tell my health care provider before I take this medicine? They need to know if you have any of these conditions: brain tumor Crohn's disease, inflammatory bowel disease, or ulcerative colitis drink more than 3 alcohol-containing drinks per day drug abuse or addiction head injury heart or circulation problems kidney disease or problems going to the bathroom liver disease lung disease, asthma, or breathing problems an unusual or allergic reaction to acetaminophen, hydrocodone, other opioid analgesics, other medicines, foods, dyes, or preservatives or trying to get breast-feeding What should I watch for while using this medicine? Tell your doctor or health intensive care medicine specialist if your pain does not go away, if it gets worse, or if you have new or a different type of pain. You may develop tolerance to the medicine. Tolerance means that you will need a higher dose of the medicine for pain relief. Tolerance is normal and is expected if you take the medicine for a long time. Do not suddenly stop taking your medicine because you may develop a severe reaction. Your body becomes used to the medicine. This does NOT mean you are addicted. Addiction is a behavior related to getting and using a drug for a non-medical reason. If you have pain, you have a medical reason to take pain medicine. Your doctor will tell you how much medicine to take. If your doctor wants you to stop the medicine, the dose will be slowly lowered over time to avoid any side effects. You may get drowsy or dizzy when you first start taking the medicine or change doses. Do not drive, use machinery, or do anything that may be dangerous until you know how the medicine affects you. Stand or sit up slowly. There are different types of narcotic medicines (opiates) for pain. If you take more than one type at the same time, you may have more side effects. Give your health care provider a list of all medicines you use. Your doctor will tell you how much medicine to take. Do not take more medicine than directed. Call emergency for help if you have problems breathing. The medicine will cause constipation. Try to have a bowel movement at least every 2 to 3 days. If you do not have a bowel movement for 3 days, call your doctor or health intensive care medicine specialist. Too much acetaminophen can be very dangerous. Do not take Tylenol (acetaminophen) or medicines that contain acetaminophen with this medicine. Many non-prescription medicines contain acetaminophen. Always read the labels carefully. You have been given the following additional information: Kidney Stone W/ Colic Ondansetron Oral disintegrating tablet Hydrocodone Bitartrate, Acetaminophen Oral tablet (Electronically signed by Teri Reyes A.R.N.P. 04/06/2017 18:45)
--- NOTE | 2017-04-06 18:46 | ED MED RECONCILIATION SUMMARY ---
Patient: MIRTHA ALEXANDER Medication Reconciliation Report [facility] VisitID: [id number] [address] [place] [address] 36y, F Registration Date/Time: 04/06/2017 Weight: 74.8 kg Height/Length: 64 in. BMI: 28.3 ALLERGIES: BuSpar, Morphine IV, NSAIDs, plastic tape , Sulfa Antibiotics, Topamax, Toradol The patient's Home Medications are listed below: THE FOLLOWING MEDICATIONS NEED TO BE RECONCILED: Clonazepam Lomotil Oral Macrobid Oral The source(s) of the original Home Medication information: Not obtained. The following Medications were given to the patient in the Emergency Department: IV NS IV Fluids bolus 1000 mL wide open, administered: 04/06/2017 1:56:00 PM Zofran [IVP] IVP 4 mg, administered: 04/06/2017 1:56:00 PM Benadryl [IVP] IVP 50 mg, administered: 04/06/2017 2:32:00 PM Toradol [IVP] IVP 30 mg, administered: 04/06/2017 2:36:00 PM The following Medications were prescribed to the patient: Zofran 4 mg: Take 1 orally every six hours as needed for nausea/vomiting. Dispense ten (10). No refills. Substitution is permissible. -- Teri Reyes, A.R.N.P. [place] 5 mg / 325 mg tablets: take 1 to 2 orally every 6 hours as needed for pain. Dispense fifteen (15). No refills. Substitution is permissible. -- Teri Reyes A.R.N.P. Flomax 0.4 mg: take 1 orally every 24 hours. Dispense fifteen (15). No refills. Substitution is permissible. -- Teri Reyes A.R.N.P.
--- NOTE | 2017-04-06 18:46 | ED MAR SUMMARY ---
..... Medication Administration Record [facility] [address] [place] [address] Patient: MIRTHA ALEXANDER Visit ID: [id number] 36y, F Weight: 74.8 kg Height/Length: 64 in BMI: 28.3 ALLERGIES: Sulfa Antibiotics, Morphine IV, Toradol, plastic tape , BuSpar, Topamax, NSAIDs Start 13:56 04/06/2017 Luís Blanchard R.N., Stop 15:03 04/06/2017 Luís Blanchard R.N. Medication Administered: IV NS (SALINE), Dose: IV Fluids, Bolus: 1000 mL wide open, Dispensed: 1000 mL bag, Site: #1 left AC. Medication Ordered: IV NS : initial bolus 1000 mL (1000 mL/hr), then none - (NOW). Given 13:56 04/06/2017 Luís Blanchard R.N. Medication Administered: ZOFRAN [IVP] (ONDANSETRON HCL), Dose: 4 mg IVP over 1 minute(s), Site: #1 left AC. Medication Ordered: Zofran IV 4 mg (NOW). Given 14:32 04/06/2017 Luís Blanchard R.N. Medication Administered: BENADRYL [IVP] (DIPHENHYDRAMINE HCL), Dose: 50 mg IVP over 2 minute(s), Site: #1 left AC. Medication Ordered: Benadryl IV 50 mg (NOW). Given 14:36 04/06/2017 Luís Blanchard R.N. Medication Administered: TORADOL [IVP], Dose: 30 mg IVP over 2 minute(s), Site: #1 left AC. Medication Ordered: Toradol IV 30 mg (NOW).
--- NOTE | 2017-04-06 18:46 | ED MAR SUMMARY ---
..... Medication Administration Record [facility] [address] [place] [address] Patient: MIRTHA ALEXANDER Visit ID: [id number] 36y, F Weight: 74.8 kg Height/Length: 64 in BMI: 28.3 ALLERGIES: Sulfa Antibiotics, Morphine IV, Toradol, plastic tape , BuSpar, Topamax, NSAIDs Start 13:56 04/06/2017 Luís Blanchard R.N., Stop 15:03 04/06/2017 Luís Blanchard R.N. Medication Administered: IV NS (SALINE), Dose: IV Fluids, Bolus: 1000 mL wide open, Dispensed: 1000 mL bag, Site: #1 left AC. Medication Ordered: IV NS : initial bolus 1000 mL (1000 mL/hr), then none - (NOW). Given 13:56 04/06/2017 Luís Blanchard R.N. Medication Administered: ZOFRAN [IVP] (ONDANSETRON HCL), Dose: 4 mg IVP over 1 minute(s), Site: #1 left AC. Medication Ordered: Zofran IV 4 mg (NOW). Given 14:32 04/06/2017 Luís Blanchard R.N. Medication Administered: BENADRYL [IVP] (DIPHENHYDRAMINE HCL), Dose: 50 mg IVP over 2 minute(s), Site: #1 left AC. Medication Ordered: Benadryl IV 50 mg (NOW). Given 14:36 04/06/2017 Luís Blanchard R.N. Medication Administered: TORADOL [IVP], Dose: 30 mg IVP over 2 minute(s), Site: #1 left AC. Medication Ordered: Toradol IV 30 mg (NOW).
--- NOTE | 2017-04-06 18:46 | ED MED RECONCILIATION SUMMARY ---
Patient: MIRTHA ALEXANDER Medication Reconciliation Report [facility] VisitID: [id number] [address] [place] [address] 36y, F Registration Date/Time: 04/06/2017 Weight: 74.8 kg Height/Length: 64 in. BMI: 28.3 ALLERGIES: BuSpar, Morphine IV, NSAIDs, plastic tape , Sulfa Antibiotics, Topamax, Toradol The patient's Home Medications are listed below: THE FOLLOWING MEDICATIONS NEED TO BE RECONCILED: Clonazepam Lomotil Oral Macrobid Oral The source(s) of the original Home Medication information: Not obtained. The following Medications were given to the patient in the Emergency Department: IV NS IV Fluids bolus 1000 mL wide open, administered: 04/06/2017 1:56:00 PM Zofran [IVP] IVP 4 mg, administered: 04/06/2017 1:56:00 PM Benadryl [IVP] IVP 50 mg, administered: 04/06/2017 2:32:00 PM Toradol [IVP] IVP 30 mg, administered: 04/06/2017 2:36:00 PM The following Medications were prescribed to the patient: Zofran 4 mg: Take 1 orally every six hours as needed for nausea/vomiting. Dispense ten (10). No refills. Substitution is permissible. -- Teri Reyes, A.R.N.P. [place] 5 mg / 325 mg tablets: take 1 to 2 orally every 6 hours as needed for pain. Dispense fifteen (15). No refills. Substitution is permissible. -- Teri Reyes A.R.N.P. Flomax 0.4 mg: take 1 orally every 24 hours. Dispense fifteen (15). No refills. Substitution is permissible. -- Teri Reyes A.R.N.P.
== END 2017-04-06 16:50 | disposition home or self-care (01) ==
LOC: ED SRH 13:18
DX: N20.2 Calculus of kidney with calculus of ureter (principal); F17.200 Nicotine dependence, unspecified, uncomplicated; Z88.1 Allergy status to other antibiotic agents; Z88.5 Allergy status to narcotic agent; Z91.09 Other allergy status, other than to drugs and biological substances; Z88.6 Allergy status to analgesic agent; Z88.8 Allergy status to other drugs, medicaments and biological substances; Z79.899 Other long term (current) drug therapy
CPT/HCPCS: 90004; 90100; 90469; 92235; 92530; 92760; 92761; 92762; 92763; 92764; 92765; 92766; 92767; 93070; 95059

== ENCOUNTER 2017-06-01 16:00 | Emergency (ER) | payer MEDICARE, OTHER ==
--- NOTE | 2017-06-01 17:23 | ED NURSING NOTES ---
Clinical Report - Nurses [facility] [address] [place] [address] 06/01/2017 16:00 Patient: MIRTHA ALEXANDER TRIAGE Triage time 16:15. Acuity: LEVEL 3. Chief Complaint: URGENCY and RIGHT-SIDED FLANK PAIN (odor in urine). Alert. CARRIE COMA SCORE: Carrie Coma Scale: 15- eyes open spontaneously (4); best verbal response- oriented x 4 (5); best motor response- obeys commands (6). --16:23 Tamiko Valencia R.N. 16:15 06/01/17. BP: 97. HR: 76. RR: 20. O2 saturation: 99%. Temp: 98.7 F. Pain level now 7/10. --16:23 Tamiko Valencia R.N. Weight: 77.1 kg. Height/Length: 64 inches. BMI: 29.2. --16:20 Tamiko Valencia R.N. Medications Clonazepam. Lomotil Oral. --16:17 Tamiko Valencia R.N. MS Contin Oral (Tablet Extended Release 15 mg) 1 tablet, daily. --16:17 Tamiko Valencia R.N. Vicodin Oral 5 mg, 2x a day. --16:18 Tamiko Valencia R.N. Medication/allergy information source: the patient. --16:23 Tamiko Valencia R.N. Allergies BuSpar. Morphine IV. NSAIDs. plastic tape . Sulfa Antibiotics. Topamax. Toradol. --16:17 Tamiko Valencia R.N. History Arrived by private vehicle. Historian: patient. Accompanied by family. ( right flank pain x 2 days, cloudy urine and odor x 5 days, abd pain x 1 week on right). Treatment LAYOUT OPERATOR: None. PAST MEDICAL HX: Immunizations: up-to-date. Last normal menstrual period- May 16. SOCIAL HX: Light tobacco smoker (cigarette)- less than 1/2 a pack per day. History of drug use: marijuana. No infectious disease exposure. ABUSE ASSESSMENT: No report of abuse. SELF HARM ASSESSMENT: A self harm assessment was performed. The patient answered "no" to the question "Do you have thoughts of harming or killing yourself?" and "Are you here because you tried to hurt yourself?". FALL RISK ASSESSMENT: Fall risk assessment completed. No fall risk identified. NUTRITIONAL RISK ASSESSMENT: The nutritional risk assessment revealed no deficiencies. FUNCTIONAL ASSESSMENT: Functional assessment: no impairments noted. LEARNING NEEDS ASSESSMENT: The learning needs assessment revealed no barriers. SKIN INTEGRITY ASSESSMENT: Skin integrity risk assessment completed. No skin integrity risk identified. --16:23 Tamiko Valencia R.N. Interventions ID band on patient. To treatment room. --16:23 Tamiko Valencia R.N. PHYSICAL ASSESSMENT Ambulatory to room. GENERAL / NEURO / PSYCH: Alert. Oriented X 4. Appears in pain. RESPIRATORY: Respirations not labored. Breath sounds within normal limits. GI / : Abdominal tenderness. Pain with urination. SKIN: Skin is warm and dry. --16:26 Tamiko Valencia R.N. NURSING PROGRESS NOTES Patient gowned. Head of bed elevated. Two patient identifiers checked. Call light placed in reach. Side rails up x 2. Bed placed in lowest position. Brakes of bed on. Patient ready for evaluation- chart flagged. ED physician notified. --16:24 Tamiko Valencia R.N. Patient ID band checked for patient name and birthdate: patient confirmed. Instructions provided to collect clean catch urine and patient verbalized understanding urine collected with return of yellow-colored cloudy urine; sample sent to lab for urinalysis and culture. Specimen labeled in the presence of the patient. --16:25 Tamiko Valencia R.N. 16:42 06/01/2017 Site #1 started via IV in the left antecubital space with an 20g angiocath, with aseptic technique and good blood return; one attempt. Blood drawn: rainbow set. Labeled in the presence of the patient and sent to the lab. Saline lock flushed with 10 mL saline. --16:47 Jesi Prince R.N. 16:53 06/01/2017 Started bag #1 1000 mL IV Fluids IV NS (Saline); at 999 mL/hr via site #1. Allergies verified and confirmed 5 rights. IV patency established. IV site checked: no pain, redness, or swelling. IV flushed thoroughly pre- and post-medication administration. --16:53 Tamiko Valencia R.N. 17:02 06/01/2017 Dilaudid (HYDROmorphone HCl PF) IVP 0.5 mg given. via site #1. Allergies verified, confirmed 5 rights and sedative warning given to the patient. IV patency established. IV site checked: no pain, redness, or swelling. IV flushed thoroughly pre- and post-medication administration. IVP given by RN. --17:02 Tamiko Valencia R.N. 17:03 06/01/2017 Started 2 gm of Ceftriaxone IVPB in bag #1 50 mL; at 100 mL/hr via site #1; Allergies verified and confirmed 5 rights. IV patency established. IV site checked: no pain, redness, or swelling. IV flushed thoroughly pre- and post-medication administration. --17:03 Tamiko Valencia R.N. 16:45 06/01/17. BP: 98/64. HR: 80. RR: 18. O2 saturation: 100%. --17:04 Tamiko Valencia R.N. 16:45. --17:04 Tamiko Valencia R.N. 17:31 06/01/2017 Ceftriaxone IVPB Discontinued: bag #1 completed upon arrival. Total amount infused: 50 mL. IV patency established. IV site checked: no pain, redness, or swelling. IV flushed thoroughly. --17:31 Tamiko Valencia R.N. 17:15 06/01/17. BP: 107/71. HR: 67. RR: 18. O2 saturation: 99%. --17:40 Tamiko Valencia R.N. 17:41 06/01/2017 Dilaudid (HYDROmorphone HCl PF) IVP 1 mg given. via site #1. Allergies verified, confirmed 5 rights and sedative warning given to the patient. IV patency established. IV site checked: no pain, redness, or swelling. IV flushed thoroughly pre- and post-medication administration. IVP given by RN. --17:41 Tamiko Valencia R.N. 17:41 06/01/17. BP: 115/77. HR: 71. RR: 18. O2 saturation: 99%. Temp: 99 F. Pain level now 7/10. --17:42 Tamiko Valencia R.N. 17:30. ( Notified provider of patient's cont pain level and request for possible CT to r/o kidney stones.). --17:46 Tamiko Valencia R.N. 18:00 06/01/2017 IV Fluids IV NS Discontinued: bag #1 completed upon discharge. Total amount infused: 1000 mL. IV patency established. IV site checked: no pain, redness, or swelling. IV flushed thoroughly. --18:15 Tamiko Valencia R.N. DISPOSITION / DISCHARGE 18:04 06/01/2017 Site #1 removed upon discharge. Pressure dressing applied. --18:14 Tamiko Valencia R.N. 18:10. Departure time: 1809. Condition at departure: improved and stable. No learning barriers present. Discharge instructions provided and reviewed with the patient. Reviewed medication(s) precautions, dosing and course information. Prescription(s) given to the patient. Patient verbalized understanding. Written instructions provided in Persian. The patient was discharged home and accompanied by bacteriology research assistant. She left the Emergency Department ambulatory and via private vehicle. Pasta Press Operator driving. --18:15 Tamiko Valencia R.N. 18:10 06/01/17. BP: deferred. HR: deferred. RR: deferred. O2 saturation: deferred. Temp: deferred. --18:15 Tamiko Valencia R.N. Locked/Released at 06/01/2017 18:16 by Tamiko Valencia R.N.
--- NOTE | 2017-06-01 17:23 | ED ORDER SUMMARY ---
..... Patient: MIRTHA ALEXANDER OrderSheet [facility] VisitID: [id number] [address] [place] [address] 36y, F Registration Date/Time: 06/01/2017 ORDER SHEET Weight: 77.1 kg Allergies: BuSpar, Morphine IV, NSAIDs, plastic tape , Sulfa Antibiotics, Topamax, Toradol GENERAL ORDERS: CBC w Diff Urgent (16:18 06/01/2017 EKoroleva P.A.-C) (Ack 16:22 KHoerner) (16:46 Anayeli R.N.) CMP Urgent (16:18 06/01/2017 EKoroleva P.A.-C) (Ack 16:22 KHoerner) (16:46 Anayeli R.N.) UA-Culture if indicated Urgent (16:18 06/01/2017 EKoroleva P.A.-C) (Ack 16:22 KHoerner) (16:26 LAbe R.N.) Lipase Urgent (16:18 06/01/2017 EKoroleva P.A.-C) (Ack 16:22 KHoerner) (16:46 Anayeli R.N.) Urine Urgent (16:18 06/01/2017 EKoroleva P.A.-C) (Ack 16:22 KHoerner) (16:26 LAbe R.N.) MEDICATION ORDERS: IV FLUIDS: IV NS : initial bolus 1000 mL (1000 mL/hr), then 1000 mL/hr for X1 (NOW); Sean (16:17 06/01/2017 EKoroleva P.A.-C) (Ack 16:31 Anayeli R.N.) (16:53 LAbe R.N.) Toradol IV 30 mg (NOW) (16:18 06/01/2017 EKoroleva P.A.-C) (Ack 16:48 LAbe R.N.) (Cancelled: Other16:52 EKoroleva P.A.-C) Ceftriaxone IV 2 gm/50mL (NOW) (16:53 06/01/2017 EKoroleva P.A.-C) (Ack 16:55 LAbe R.N.) (17:03 LAbe R.N.) Dilaudid IV 0.5 mg (HIGH ALERT MEDICATION, NOW) (16:53 06/01/2017 Cee Perla.Eber) (Ack 16:55 LAbe R.N.) (17:02 LAbe R.N.) Dilaudid IV 1 mg (HIGH ALERT MEDICATION, NOW) (17:34 06/01/2017 Cee Dumont) (Ack 17:35 LAbe R.N.) (17:41 LAbe R.N.) ORDER SHEET NOTES: [Electronically signed by Linda Espinoza P.A.-C (18:12 06/01/2017)] [Electronically signed by Tamiko Valencia R.N. (18:16 06/01/2017)] [Electronically locked/signed by Tamiko Valencia R.N. (18:16 06/01/2017)]
--- NOTE | 2017-06-01 17:23 | ED ORDER SUMMARY ---
..... Patient: MIRTHA ALEXANDER OrderSheet [facility] VisitID: [id number] [address] [place] [address] 36y, F Registration Date/Time: 06/01/2017 ORDER SHEET Weight: 77.1 kg Allergies: BuSpar, Morphine IV, NSAIDs, plastic tape , Sulfa Antibiotics, Topamax, Toradol GENERAL ORDERS: CBC w Diff Urgent (16:18 06/01/2017 EKoroleva P.A.-C) (Ack 16:22 KHoerner) (16:46 Anayeli R.N.) CMP Urgent (16:18 06/01/2017 EKoroleva P.A.-C) (Ack 16:22 KHoerner) (16:46 Anayeli R.N.) UA-Culture if indicated Urgent (16:18 06/01/2017 EKoroleva P.A.-C) (Ack 16:22 KHoerner) (16:26 LAbe R.N.) Lipase Urgent (16:18 06/01/2017 EKoroleva P.A.-C) (Ack 16:22 KHoerner) (16:46 Anayeli R.N.) Urine Urgent (16:18 06/01/2017 EKoroleva P.A.-C) (Ack 16:22 KHoerner) (16:26 LAbe R.N.) MEDICATION ORDERS: IV FLUIDS: IV NS : initial bolus 1000 mL (1000 mL/hr), then 1000 mL/hr for X1 (NOW); Sean (16:17 06/01/2017 EKoroleva P.A.-C) (Ack 16:31 Anayeli R.N.) (16:53 LAbe R.N.) Toradol IV 30 mg (NOW) (16:18 06/01/2017 EKoroleva P.A.-C) (Ack 16:48 LAbe R.N.) (Cancelled: Other16:52 EKoroleva P.A.-C) Ceftriaxone IV 2 gm/50mL (NOW) (16:53 06/01/2017 EKoroleva P.A.-C) (Ack 16:55 LAbe R.N.) (17:03 LAbe R.N.) Dilaudid IV 0.5 mg (HIGH ALERT MEDICATION, NOW) (16:53 06/01/2017 Cee Perla.Eber) (Ack 16:55 LAbe R.N.) (17:02 LAbe R.N.) Dilaudid IV 1 mg (HIGH ALERT MEDICATION, NOW) (17:34 06/01/2017 Cee Dumont) (Ack 17:35 LAbe R.N.) (17:41 LAbe R.N.) ORDER SHEET NOTES: [Electronically signed by Linda Espinoza P.A.-C (18:12 06/01/2017)] [Electronically signed by Tamiko Valencia R.N. (18:16 06/01/2017)] [Electronically locked/signed by Tamiko Valencia R.N. (18:16 06/01/2017)]
--- NOTE | 2017-06-01 17:23 | ED NURSING NOTES ---
Clinical Report - Nurses [facility] [address] [place] [address] 06/01/2017 16:00 Patient: MIRTHA ALEXANDER TRIAGE Triage time 16:15. Acuity: LEVEL 3. Chief Complaint: URGENCY and RIGHT-SIDED FLANK PAIN (odor in urine). Alert. CARRIE COMA SCORE: Carrie Coma Scale: 15- eyes open spontaneously (4); best verbal response- oriented x 4 (5); best motor response- obeys commands (6). --16:23 Tamiko Valencia R.N. 16:15 06/01/17. BP: 97. HR: 76. RR: 20. O2 saturation: 99%. Temp: 98.7 F. Pain level now 7/10. --16:23 Tamiko Valencia R.N. Weight: 77.1 kg. Height/Length: 64 inches. BMI: 29.2. --16:20 Tamiko Valencia R.N. Medications Clonazepam. Lomotil Oral. --16:17 Tamiko Valencia R.N. MS Contin Oral (Tablet Extended Release 15 mg) 1 tablet, daily. --16:17 Tamiko Valencia R.N. Vicodin Oral 5 mg, 2x a day. --16:18 Tamiko Valencia R.N. Medication/allergy information source: the patient. --16:23 Tamiko Valencia R.N. Allergies BuSpar. Morphine IV. NSAIDs. plastic tape . Sulfa Antibiotics. Topamax. Toradol. --16:17 Tamiko Valencia R.N. History Arrived by private vehicle. Historian: patient. Accompanied by family. ( right flank pain x 2 days, cloudy urine and odor x 5 days, abd pain x 1 week on right). Treatment FLOWER STRIPPER: None. PAST MEDICAL HX: Immunizations: up-to-date. Last normal menstrual period- May 16. SOCIAL HX: Light tobacco smoker (cigarette)- less than 1/2 a pack per day. History of drug use: marijuana. No infectious disease exposure. ABUSE ASSESSMENT: No report of abuse. SELF HARM ASSESSMENT: A self harm assessment was performed. The patient answered "no" to the question "Do you have thoughts of harming or killing yourself?" and "Are you here because you tried to hurt yourself?". FALL RISK ASSESSMENT: Fall risk assessment completed. No fall risk identified. NUTRITIONAL RISK ASSESSMENT: The nutritional risk assessment revealed no deficiencies. FUNCTIONAL ASSESSMENT: Functional assessment: no impairments noted. LEARNING NEEDS ASSESSMENT: The learning needs assessment revealed no barriers. SKIN INTEGRITY ASSESSMENT: Skin integrity risk assessment completed. No skin integrity risk identified. --16:23 Tamiko Valencia R.N. Interventions ID band on patient. To treatment room. --16:23 Tamiko Valencia R.N. PHYSICAL ASSESSMENT Ambulatory to room. GENERAL / NEURO / PSYCH: Alert. Oriented X 4. Appears in pain. RESPIRATORY: Respirations not labored. Breath sounds within normal limits. GI / : Abdominal tenderness. Pain with urination. SKIN: Skin is warm and dry. --16:26 Tamiko Valencia R.N. NURSING PROGRESS NOTES Patient gowned. Head of bed elevated. Two patient identifiers checked. Call light placed in reach. Side rails up x 2. Bed placed in lowest position. Brakes of bed on. Patient ready for evaluation- chart flagged. ED physician notified. --16:24 Tamiko Valencia R.N. Patient ID band checked for patient name and birthdate: patient confirmed. Instructions provided to collect clean catch urine and patient verbalized understanding urine collected with return of yellow-colored cloudy urine; sample sent to lab for urinalysis and culture. Specimen labeled in the presence of the patient. --16:25 Tamiko Valencia R.N. 16:42 06/01/2017 Site #1 started via IV in the left antecubital space with an 20g angiocath, with aseptic technique and good blood return; one attempt. Blood drawn: rainbow set. Labeled in the presence of the patient and sent to the lab. Saline lock flushed with 10 mL saline. --16:47 Jesi Prince R.N. 16:53 06/01/2017 Started bag #1 1000 mL IV Fluids IV NS (Saline); at 999 mL/hr via site #1. Allergies verified and confirmed 5 rights. IV patency established. IV site checked: no pain, redness, or swelling. IV flushed thoroughly pre- and post-medication administration. --16:53 Tamiko Valencia R.N. 17:02 06/01/2017 Dilaudid (HYDROmorphone HCl PF) IVP 0.5 mg given. via site #1. Allergies verified, confirmed 5 rights and sedative warning given to the patient. IV patency established. IV site checked: no pain, redness, or swelling. IV flushed thoroughly pre- and post-medication administration. IVP given by RN. --17:02 Tamiko Valencia R.N. 17:03 06/01/2017 Started 2 gm of Ceftriaxone IVPB in bag #1 50 mL; at 100 mL/hr via site #1; Allergies verified and confirmed 5 rights. IV patency established. IV site checked: no pain, redness, or swelling. IV flushed thoroughly pre- and post-medication administration. --17:03 Tamiko Valencia R.N. 16:45 06/01/17. BP: 98/64. HR: 80. RR: 18. O2 saturation: 100%. --17:04 Tamiko Valencia R.N. 16:45. --17:04 Tamiko Valencia R.N. 17:31 06/01/2017 Ceftriaxone IVPB Discontinued: bag #1 completed upon arrival. Total amount infused: 50 mL. IV patency established. IV site checked: no pain, redness, or swelling. IV flushed thoroughly. --17:31 Tamiko Valencia R.N. 17:15 06/01/17. BP: 107/71. HR: 67. RR: 18. O2 saturation: 99%. --17:40 Tamiko Valencia R.N. 17:41 06/01/2017 Dilaudid (HYDROmorphone HCl PF) IVP 1 mg given. via site #1. Allergies verified, confirmed 5 rights and sedative warning given to the patient. IV patency established. IV site checked: no pain, redness, or swelling. IV flushed thoroughly pre- and post-medication administration. IVP given by RN. --17:41 Tamiko Valencia R.N. 17:41 06/01/17. BP: 115/77. HR: 71. RR: 18. O2 saturation: 99%. Temp: 99 F. Pain level now 7/10. --17:42 Tamiko Valencia R.N. 17:30. ( Notified provider of patient's cont pain level and request for possible CT to r/o kidney stones.). --17:46 Tamiko Valencia R.N. 18:00 06/01/2017 IV Fluids IV NS Discontinued: bag #1 completed upon discharge. Total amount infused: 1000 mL. IV patency established. IV site checked: no pain, redness, or swelling. IV flushed thoroughly. --18:15 Tamiko Valencia R.N. DISPOSITION / DISCHARGE 18:04 06/01/2017 Site #1 removed upon discharge. Pressure dressing applied. --18:14 Tamiko Valencia R.N. 18:10. Departure time: 1809. Condition at departure: improved and stable. No learning barriers present. Discharge instructions provided and reviewed with the patient. Reviewed medication(s) precautions, dosing and course information. Prescription(s) given to the patient. Patient verbalized understanding. Written instructions provided in Polish. The patient was discharged home and accompanied by culinary chef. She left the Emergency Department ambulatory and via private vehicle. Chiropractor Assistant driving. --18:15 Tamiko Valencia R.N. 18:10 06/01/17. BP: deferred. HR: deferred. RR: deferred. O2 saturation: deferred. Temp: deferred. --18:15 Tamiko Valencia R.N. Locked/Released at 06/01/2017 18:16 by Tamiko Valencia R.N.
--- NOTE | 2017-06-01 17:23 | ED CLINICAL REPORT ---
Clinical Report - Physicians/Mid Levels [facility] [address] [place] [address] 06/01/2017 16:00 Patient: MIRTHA ALEXANDER Time Seen: 16:44 Jun 01 2017. Arrived- By private vehicle. Historian- patient. HISTORY OF PRESENT ILLNESS Chief Complaint: FLANK PAIN. This started just prior to arrival and is still present. It is described as "pain" and it is described as located in the right flank. No vomiting or diarrhea. (Patient reports urgency and frequency. History of nephrolithiasis. Last [facility]. About 3 weeks previously.). REVIEW OF SYSTEMS No constipation, black stools, difficulty with urination, pain with urination or headache. No sore throat, chest pain or difficulty breathing. All systems otherwise negative, except as recorded above. SOCIAL HISTORY Current every day smoker. History of drug use: marijuana. ADDITIONAL NOTES The nursing notes have been reviewed. PHYSICAL EXAM Vital Signs: 06/01/2017 16:15 BP: 97. HR: 76. RR: 20. O2 saturation: 99%. Temp: 98.7 F. ENT: Nose normal. Pharynx normal. Neck: Normal inspection. CVS: Normal heart rate and rhythm. Heart sounds normal. Respiratory: No respiratory distress. Breath sounds normal. No decreased air movement. Abdomen: Soft and nontender. No abdominal tenderness or distention. Back: CVA tenderness. Neuro: Oriented X 3. No motor deficit. LABS, X-RAYS, AND EKG Laboratory Tests: UA-Culture if indicated: (BRIGIDA: 06/01/2017 16:20) ( MsgRcvd 06/01/2017 16:50) Final results Test Result Flag Units (Reference) URINE COLOR YELLOW URINE APPEARANCE CLOUDY URINE GLUCOSE NEGATIVE (NEGATIVE) URINE BILIRUBIN POSITIVE (NEGATIVE) URINE BILIRUBIN ICTOTEST POSITIVE (NEGATIVE) URINE KETONE NEGATIVE (NEGATIVE) URINE SPECIFIC GRAVITY 1.015 (1.010-1.030) URINE PH 6.0 (5.0-8.0) URINE PROTEIN TRACE (NEGATIVE) URINE UROBILINOGEN 0.2 EU/dL (0.2-1.0) URINE NITRITE POSITIVE (NEGATIVE) URINE BLOOD NEGATIVE (NEGATIVE) URINE LEUK ESTERASE POSITIVE (NEGATIVE) URINE RBC NONE SEEN rbc/hpf (0-1) URINE WBC >100 wbc/hpf (0-1) URINE EPITHELIAL CELLS 3-5 EPI/hpf (0-5) URINE BACTERIA MANY (4+) (NONE SEEN) URINE COMMENT CULTURE INDICATED 1+ MUCUSURINE CULTURES ARE SET-UP BASED ON THE FOLLOWING CRITERIA:POSITIVE NITRITEPOSITIVE LEUKOCYTE ESTERASEGREATER THAN 10 WHITE BLOOD CELLSMODERATE (2+) OR GREATER BACTERIA Urine: (BRIGIDA: 06/01/2017 16:20) ( [facility] 06/01/2017 16:38) Final results Test Result Flag Units (Reference) URINE NEGATIVE CBC w Diff: (BRIGIDA: 06/01/2017 16:30) ( [facility] 06/01/2017 16:50) Final results Test Result Flag Units (Reference) WHITE BLOOD COUNT 13.1 H K/uL (4.5-11.5) RED BLOOD COUNT 3.99 L M/uL (4.00-5.20) HEMOGLOBIN 12.4 gm/dL (12.0-16.0) HEMATOCRIT 37.0 % (36.0-46.0) MEAN CELL VOLUME 93 fL (80-100) MEAN CORPUSCULAR HGB 31 pg (26-34) MEAN CORPUSCULAR HGB CONC 34 g/dL (31-37) RED CELL DISTRIBUTION WIDTH 13.7 % (11.6-14.8) PLATELET COUNT 332 K/uL (150-400) NEUTROPHIL % 80.3 H % (50-75) LYMPH % 10.5 L % (25-40) MONO % 8.6 % (3-14) EOSINOPHIL % 0.2 % (0-4) BASOPHIL % 0.4 % (0-2) CMP: (BRIGIDA: 06/01/2017 16:30) ( [facility] 06/01/2017 17:07) Final results Test Result Flag Units (Reference) GLUCOSE 96 mg/dL (70-110) BUN 13 mg/dL (7-18) CREATININE 0.8 mg/dL (0.6-1.3) Estimated GFR >60 mL/min Estimated GFR- >60 mL/min Note: Persistent reduction over 3 months in eGFR<60 mL/min/1.73 m2 defines CKD. Patients with eGFR values>=60 mL/min/1.73 m2 may also have CKD if evidence ofpersistent proteinuria. Additional information may be foundat www.[email or web address].org. SODIUM 143 mmol/L (136-145) POTASSIUM 3.6 mmol/L (3.5-5.1) CHLORIDE 104 mmol/L (98-107) CARBON DIOXIDE 25 mmol/L (21-32) CALCIUM 8.2 L mg/dL (8.5-10.1) TOTAL PROTEIN 7.2 g/dL (6.4-8.2) ALBUMIN 3.2 L g/dL (3.3-5.0) BILIRUBIN, TOTAL 0.5 mg/dL (0.0-1.0) ALKALINE PHOSPHATASE 80 U/L (46-116) AST (SGOT) 27 U/L (15-37) ALT (SGPT) 31 U/L (12-78) LIPASE 86 U/L (73-393) . PROGRESS AND PROCEDURES Course of Care: During the time in the ED, the following DDX were considered: acute surgical abdomen, hemodynamic or metabolic instability, dehydration, gastroenteritis-viral, food borne, or bacterial, food intolerance, irritable or inflammatory bowel, infection, sepsis. Patient with signs of Pyelonephritis. NO signs of . Pt given iv hydration/ iv abx. 06/01/2017 17:41 BP: 115/77. HR: 71. RR: 18. O2 saturation: 99%. Temp: 99 F. 06/01/2017 17:15 BP: 107/71. HR: 67. RR: 18. O2 saturation: 99%. Patient is stable. Physical exam findings are improved. Symptoms better. Patient/family counseled. Disposition: Discharged. CLINICAL IMPRESSION Acute pyelonephritis INSTRUCTIONS Drink plenty of fluids. (hydrate plenty). Prescription Medications: Hydrocodone/APAP 5mg / 325mg: take 1 orally every 6 hours as needed for pain. Dispense fifteen (15). No refill. Cipro 500 mg: take 1 tab orally every 12 hours for 10 days. Dispense twenty (20). No refills. Substitution is permissible. Follow-up: Follow up with your doctor in three days. (Electronically signed by Linda Espinoza P.A.-C 06/01/2017 18:12)
--- NOTE | 2017-06-01 18:17 | ED MAR SUMMARY ---
..... Medication Administration Record [facility] [address] [place] [address] Patient: MIRTHA ALEXANDER Visit ID: [id number] 36y, F Weight: 77.1 kg Height/Length: 64 in BMI: 29.2 ALLERGIES: BuSpar, Morphine IV, NSAIDs, plastic tape , Sulfa Antibiotics, Topamax, Toradol Start 16:53 06/01/2017 Tamiko Valencia R.N., Stop 18:00 06/01/2017 Tamiko Valencia R.N. Medication Administered: IV NS (SALINE), Dose: IV Fluids, Rate: 999 mL/hr, Dispensed: 1000 mL bag, Site: #1 left AC. Medication Ordered: IV NS : initial bolus 1000 mL (1000 mL/hr), then 1000 mL/hr for X1 (NOW); Sean. Given 17:02 06/01/2017 Tamiko Valencia R.N. Medication Administered: DILAUDID [IVP] (HYDROMORPHONE HCL PF), Dose: 0.5 mg IVP, Site: #1 left AC. Medication Ordered: Dilaudid IV 0.5 mg (HIGH ALERT MEDICATION, NOW). Start 17:03 06/01/2017 Tamiko Valencia R.N., Stop 17:31 06/01/2017 Tamiko Valencia R.N. Medication Administered: CEFTRIAXONE [IVPB], Dose: 2 gm IVPB, Rate: 100 mL/hr, Dispensed: 50 mL bag, Site: #1 left AC. Medication Ordered: Ceftriaxone IV 2 gm/50mL (NOW). Given 17:41 06/01/2017 Tamiko Valencia R.N. Medication Administered: DILAUDID [IVP] (HYDROMORPHONE HCL PF), Dose: 1 mg IVP, Site: #1 left AC. Medication Ordered: Dilaudid IV 1 mg (HIGH ALERT MEDICATION, NOW).
--- NOTE | 2017-06-01 18:17 | ED MED RECONCILIATION SUMMARY ---
Patient: MIRTHA ALEXANDER Medication Reconciliation Report [facility] VisitID: [id number] [place] [address] 36y, F Registration Date/Time: 06/01/2017 Weight: 77.1 kg Height/Length: 64 in. BMI: 29.2 ALLERGIES: BuSpar, Morphine IV, NSAIDs, plastic tape , Sulfa Antibiotics, Topamax, Toradol The patient's Home Medications are listed below: THE FOLLOWING MEDICATIONS NEED TO BE RECONCILED: Clonazepam Lomotil Oral MS Contin Oral (15 mg) 1 tablet, daily Vicodin Oral 5 mg, 2x a day The source(s) of the original Home Medication information: patient The following Medications were given to the patient in the Emergency Department: IV NS IV Fluids bolus 0, then 999 mL/hr, administered: 06/01/2017 4:53:00 PM Dilaudid [IVP] IVP 0.5 mg, administered: 06/01/2017 5:02:00 PM Ceftriaxone [IVPB] IVPB bolus 0, then 2 gm 100 mL/hr, administered: 06/01/2017 5:03:00 PM Dilaudid [IVP] IVP 1 mg, administered: 06/01/2017 5:41:00 PM The following Medications were prescribed to the patient: Hydrocodone/APAP 5mg / 325mg: take 1 orally every 6 hours as needed for pain. Dispense fifteen (15). No refill. -- Linda Espinoza, P.ACarolin-Annamaria Cipro 500 mg: take 1 tab orally every 12 hours for 10 days. Dispense twenty (20). No refills. Substitution is permissible. -- Linda Espinoza P.A.-C
--- NOTE | 2017-06-01 18:17 | ED MAR SUMMARY ---
..... Medication Administration Record [facility] [address] [place] [address] Patient: MIRTHA ALEXANDER Visit ID: [id number] 36y, F Weight: 77.1 kg Height/Length: 64 in BMI: 29.2 ALLERGIES: BuSpar, Morphine IV, NSAIDs, plastic tape , Sulfa Antibiotics, Topamax, Toradol Start 16:53 06/01/2017 Tamiko Valencia R.N., Stop 18:00 06/01/2017 Tamiko Valencia R.N. Medication Administered: IV NS (SALINE), Dose: IV Fluids, Rate: 999 mL/hr, Dispensed: 1000 mL bag, Site: #1 left AC. Medication Ordered: IV NS : initial bolus 1000 mL (1000 mL/hr), then 1000 mL/hr for X1 (NOW); Sean. Given 17:02 06/01/2017 Tamiko Valencia R.N. Medication Administered: DILAUDID [IVP] (HYDROMORPHONE HCL PF), Dose: 0.5 mg IVP, Site: #1 left AC. Medication Ordered: Dilaudid IV 0.5 mg (HIGH ALERT MEDICATION, NOW). Start 17:03 06/01/2017 Tamiko Valencia R.N., Stop 17:31 06/01/2017 Tamiko Valencia R.N. Medication Administered: CEFTRIAXONE [IVPB], Dose: 2 gm IVPB, Rate: 100 mL/hr, Dispensed: 50 mL bag, Site: #1 left AC. Medication Ordered: Ceftriaxone IV 2 gm/50mL (NOW). Given 17:41 06/01/2017 Tamiko Valencia R.N. Medication Administered: DILAUDID [IVP] (HYDROMORPHONE HCL PF), Dose: 1 mg IVP, Site: #1 left AC. Medication Ordered: Dilaudid IV 1 mg (HIGH ALERT MEDICATION, NOW).
--- NOTE | 2017-06-01 18:17 | ED DISCHARGE INSTRUCTIONS ---
Patient: MIRTHA ALEXANDER General Instructions [facility] VisitID: [id number] [place] [address] 36y, F Registration Date/Time: 06/01/2017 Acute pyelonephritis INSTRUCTIONS Drink plenty of fluids. (hydrate plenty). Prescription Medications: Hydrocodone/APAP 5mg / 325mg: take 1 orally every 6 hours as needed for pain. Dispense fifteen (15). No refill. Cipro 500 mg: take 1 tab orally every 12 hours for 10 days. Dispense twenty (20). No refills. Substitution is permissible. Follow-up: Follow up with your doctor in three days. ADDITIONAL INFORMATION Kidney Infection [Adult, Female] An infection of the kidney is also called "pyelonephritis". It usually starts as a bladder infection ("cystitis") which spreads to the kidneys. Pyelonephritis is more serious than a bladder infection. It can cause severe illness if not treated properly. The usual symptoms include an aching pain in the back, side or lower abdomen. Other symptoms may include fever, chills, nausea, vomiting, an urge to urinate and a burning sensation when passing urine. Home Care: Stay home from work or school. Rest in bed until your fever breaks and you are feeling better. Drink lots of fluid (at least 6-8 glasses a day, unless you must restrict fluids for other medical reasons). This will force the medicine into your urinary system and flush the bacteria out of your body. Avoid sexual intercourse until you have finished all of your medicine and your symptoms have gone away. Avoid caffeine, alcohol and spicy foods which may irritate the kidney and bladder. You may use acetaminophen (Tylenol) or ibuprofen (Motrin, Advil) to control pain, unless another pain medicine was prescribed. [NOTE: If you have chronic liver or kidney disease or ever had a stomach ulcer or GI bleeding, talk with your doctor before using these medicines.] Follow Up with your doctor or as advised by our staff for a repeat urine test in 10 days. This will ensure that your infection is fully cleared. [NOTE: If you had an X-ray or CT scan, it will be reviewed by a specialist. You will be notified of any new findings that may affect your care.] Get Prompt Medical Attention if any of the following occur: Fever over 100.4F (38.0C) after 48 hours of treatment No improvement by the third day of treatment Increasing back or abdominal pain Repeated vomiting or inability to take oral medicine Weakness, dizziness or fainting Capitan Diet A bland diet is used for patients with an upset stomach. It consists of foods that are mild and easy to digest. It is better to eat small frequent meals rather than three large meals a day. BEVERAGES OK: Fruit juices, non-caffeinated teas and coffee, non-carbonated gutierrez AVOID: Carbonated beverage, caffeinated tea and coffee, all alcoholic beverages BREAD OK: Refined white, wheat or rye bread, reyes or soda crackers, Vero toast, plain rolls, bagels AVOID: Whole-grain bread CEREAL OK: Refined cereals: cooked or ready to eat AVOID: Whole grain cereals and granola, or those containing bran, seeds or nuts DESSERTS OK: Peanut butter and all others except those to "avoid" AVOID: Chocolate, cocoa, coconut, popcorn, nuts, seeds, jam, marmalade FRUITS OK: Canned, cooked, frozen or fresh fruits without seeds or tough skin AVOID: Olives, skin and seeds of fruit MEATS OK: All fresh or preserved meat, fish and fowl AVOID: Any that are prepared with those spices to "avoid" CHEESE & EGGS OK: Eggs, cottage cheese, cream cheese, other cheeses AVOID: All cheeses made with those spices to "avoid" POTATOES & PASTA OK: Potato, rice, macaroni, noodles, spaghetti AVOID: None SOUPS OK: All soups without heavy seasoning AVOID: Soups made with those spices to "avoid" VEGETABLES OK: Canned, cooked, fresh or frozen mildly flavored vegetables without seeds, skins or coarse fiber AVOID: Vegetables prepared with those spices to "avoid"; skin and seeds of vegetables and those with coarse fiber SPICES OK: Salt, lemon and mechoopda juice, vinegar, all extracts, alexis, cinnamon, thyme, mace, allspice, paprika AVOID: [place] powder, cloves, pepper, seed spices, garlic, gravy pickles, highly seasoned salad dressings Clear Liquid Diet Clear liquids are any liquid that you can see through as well as those that are very easy to digest. This is used while the body is recovering from irritation or infection of the stomach or intestinal tract. It may also be used before special procedures or surgery. This diet is to be used no more than three days. You may include the following items. Adults Adults should drink a total of 23 quarts of liquid per day. It may be easier to drink small frequent servings rather than a few large ones. Liquids can include: Fruit juices.Strained orange juice or lemonade (no pulp), apple, grape and cranberry juice, clear fruit drinks, sports drinks Beverages.Sport drinks, sodas, mineral water (plain or flavored), tea, black coffee, liquid gelatin (add twice the recommended amount of water) Soups.Clear broth, consomm, bouillon Desserts.Plain gelatin, popsicles, fruit juice bars Children Over 2 years old The following liquids are acceptable for children over age 2: Fruit juices.Strained orange juice or lemonade (no pulp), apple, grape and cranberry juice, clear fruit drinks Beverages. Sports drinks, sodas, mineral water (plain or flavored), tea, liquid gelatin (add twice the recommended amount of water) Soups. Clear broth, consomm, bouillon Desserts. Plain gelatin, popsicles, fruit juice bars Children under 2 years old Oral rehydration fluids such are available at drug stores and most grocery stores without a prescription. Hydrocodone Bitartrate, Acetaminophen Oral tablet What is this medicine? ACETAMINOPHEN; HYDROCODONE (a set a CJ bam fen; moni droe KOE done) is a pain reliever. It is used to treat mild to moderate pain. How should I use this medicine? Take this medicine by mouth. Swallow it with a full glass of water. Follow the directions on the prescription label. If the medicine upsets your stomach, take the medicine with food or milk. Do not take more than you are told to take. Talk to your clay dry press mixer operator regarding the use of this medicine in children. This medicine is not approved for use in children. What side effects may I notice from receiving this medicine? Side effects that you should report to your doctor or health healthcare customer service as soon as possible: allergic reactions like skin rash, itching or hives, swelling of the face, lips, or tongue breathing problems confusion feeling faint or lightheaded, falls stomach pain yellowing of the eyes or skin Side effects that usually do not require medical attention (report to your doctor or health healthcare customer service if they continue or are bothersome): nausea, vomiting stomach upset What may interact with this medicine? alcohol antihistamines isoniazid medicines for depression, anxiety, or psychotic disturbances medicines for sleep muscle relaxants naltrexone narcotic medicines (opiates) for pain phenobarbital ritonavir tramadol What if I miss a dose? If you miss a dose, take it as soon as you can. If it is almost time for your next dose, take only that dose. Do not take double or extra doses. Where should I keep my medicine? Keep out of the reach of children. This medicine can be abused. Keep your medicine in a safe place to protect it from theft. Do not share this medicine with anyone. Selling or giving away this medicine is dangerous and against the law. Store at room temperature between 15 and 30 degrees C (59 and 86 degrees F). Protect from light. Keep container tightly closed. Throw away any unused medicine after the expiration date. Discard unused medicine and used packaging carefully. Pets and children can be harmed if they find used or lost packages. What should I tell my health care provider before I take this medicine? They need to know if you have any of these conditions: brain tumor Crohn's disease, inflammatory bowel disease, or ulcerative colitis drink more than 3 alcohol-containing drinks per day drug abuse or addiction head injury heart or circulation problems kidney disease or problems going to the bathroom liver disease lung disease, asthma, or breathing problems an unusual or allergic reaction to acetaminophen, hydrocodone, other opioid analgesics, other medicines, foods, dyes, or preservatives or trying to get breast-feeding What should I watch for while using this medicine? Tell your doctor or health healthcare customer service if your pain does not go away, if it gets worse, or if you have new or a different type of pain. You may develop tolerance to the medicine. Tolerance means that you will need a higher dose of the medicine for pain relief. Tolerance is normal and is expected if you take the medicine for a long time. Do not suddenly stop taking your medicine because you may develop a severe reaction. Your body becomes used to the medicine. This does NOT mean you are addicted. Addiction is a behavior related to getting and using a drug for a non-medical reason. If you have pain, you have a medical reason to take pain medicine. Your doctor will tell you how much medicine to take. If your doctor wants you to stop the medicine, the dose will be slowly lowered over time to avoid any side effects. You may get drowsy or dizzy when you first start taking the medicine or change doses. Do not drive, use machinery, or do anything that may be dangerous until you know how the medicine affects you. Stand or sit up slowly. There are different types of narcotic medicines (opiates) for pain. If you take more than one type at the same time, you may have more side effects. Give your health care provider a list of all medicines you use. Your doctor will tell you how much medicine to take. Do not take more medicine than directed. Call emergency for help if you have problems breathing. The medicine will cause constipation. Try to have a bowel movement at least every 2 to 3 days. If you do not have a bowel movement for 3 days, call your doctor or health healthcare customer service. Too much acetaminophen can be very dangerous. Do not take Tylenol (acetaminophen) or medicines that contain acetaminophen with this medicine. Many non-prescription medicines contain acetaminophen. Always read the labels carefully. You have been given the following additional information: Pyelonephritis, Female (Adult) Diet, Capitan (Adult) Diet, Clear Liquid Hydrocodone Bitartrate, Acetaminophen Oral tablet (Electronically signed by Linda Espinoza P.A.-C 06/01/2017 18:12)
--- NOTE | 2017-06-01 18:17 | ED MED RECONCILIATION SUMMARY ---
Patient: MIRTHA ALEXANDER Medication Reconciliation Report [facility] VisitID: [id number] [place] [address] 36y, F Registration Date/Time: 06/01/2017 Weight: 77.1 kg Height/Length: 64 in. BMI: 29.2 ALLERGIES: BuSpar, Morphine IV, NSAIDs, plastic tape , Sulfa Antibiotics, Topamax, Toradol The patient's Home Medications are listed below: THE FOLLOWING MEDICATIONS NEED TO BE RECONCILED: Clonazepam Lomotil Oral MS Contin Oral (15 mg) 1 tablet, daily Vicodin Oral 5 mg, 2x a day The source(s) of the original Home Medication information: patient The following Medications were given to the patient in the Emergency Department: IV NS IV Fluids bolus 0, then 999 mL/hr, administered: 06/01/2017 4:53:00 PM Dilaudid [IVP] IVP 0.5 mg, administered: 06/01/2017 5:02:00 PM Ceftriaxone [IVPB] IVPB bolus 0, then 2 gm 100 mL/hr, administered: 06/01/2017 5:03:00 PM Dilaudid [IVP] IVP 1 mg, administered: 06/01/2017 5:41:00 PM The following Medications were prescribed to the patient: Hydrocodone/APAP 5mg / 325mg: take 1 orally every 6 hours as needed for pain. Dispense fifteen (15). No refill. -- Linda Espinoza, P.ACarolin-Annamaria Cipro 500 mg: take 1 tab orally every 12 hours for 10 days. Dispense twenty (20). No refills. Substitution is permissible. -- Linda Espinoza P.A.-C
== END 2017-06-01 18:10 | disposition home or self-care (01) ==
LOC: ED SRH 16:00
DX: N10 Acute pyelonephritis (principal); F17.200 Nicotine dependence, unspecified, uncomplicated
CPT/HCPCS: 90004; 90025; 90100; 90148; 90469; 92235; 93070; 95059

== ENCOUNTER 2017-06-03 14:30 | Emergency (ER) | payer MEDICARE, OTHER ==
--- NOTE | 2017-06-03 18:25 | DIAGNOSTIC IMAGING REPORT ---
PROCEDURE: CT ABDOMEN/PELVIS W/O CONTRAST INDICATION: Right flank pain TECHNIQUE: Noncontrast axial images were obtained of the entire abdomen and pelvis with sagittal and coronal reformations. COMPARISON: Abdominal ultrasound 06/03/[address] abdomen/pelvis 04/06/2017. FINDINGS: ABDOMEN: Minor right basilar atelectasis. Heart size is normal. Mild right hydronephrosis and proximal ureter without evidence of a distal calculus or mass. There is a 1 ml nonobstructing right renal lower pole calculus. Normal left kidney and ureter. Liver, gallbladder, pancreas and adrenal glands are normal. Normal abdominal aorta. Moderate stool. PELVIS: Status post appendectomy and tubal ligation. Uterus, adnexa and bladder are normal. Mild degenerative changes of the spine. IMPRESSION: 1. Mild right hydronephrosis suggestive of a recently passed calculus 2. Nonobstructing right renal calculus 3. Appendectomy and tubal ligation 4. Results discussed with LENNY Elder All CT scans at this facility use dose modulation, iterative reconstruction, and/or weight-based dosing when appropriate to reduce radiation dose to as low as reasonably achievable.
--- NOTE | 2017-06-03 18:27 | DIAGNOSTIC IMAGING REPORT ---
PROCEDURE: US ABDOMEN ULTRASOUND-LIMITED INDICATION: RUQ PAIN TECHNIQUE: Dietz scale and color Doppler sonographic images of the abdomen were obtained. COMPARISON: CT abdomen/pelvis 04/06/2017 and abdominal ultrasound 08/22/2011 FINDINGS: Normal gallbladder and CBD, 5.7 mm. Negative Casillas's sign. Normal liver. Pancreas not well visualized. Aorta and IVC are patent. Normal hepatopetal flow. Right kidney measures 10.9 cm with a 6 mm mid to lower pole echogenic focus. IMPRESSION: 1. Right renal mid to lower pole echogenic artifact versus nonobstructing calculus.
--- NOTE | 2017-06-03 19:45 | ED ORDER SUMMARY ---
..... Patient: MIRTHA ALEXANDER OrderSheet [facility] VisitID: [id number] [address] [place] [address] 36y, F Registration Date/Time: 06/03/2017 ORDER SHEET Weight: 77.1 kg (stated) Allergies: BuSpar, Morphine IV, NSAIDs, plastic tape , Sulfa Antibiotics, Topamax, Toradol GENERAL ORDERS: CBC w Diff Urgent (15:05 06/03/2017 EKoroleva P.A.-C) (Ack 15:06 LNations ER Tech1) (15:29 DDean R.N.) CMP Urgent (15:05 06/03/2017 EKoroleva P.A.-C) (Ack 15:06 LNations ER Tech1) (15:29 DDean R.N.) UA-Culture if indicated Urgent (15:05 06/03/2017 EKoroleva P.A.-C) (Ack 15:06 LNations ER Tech1) (15:29 DDean R.N.) PCT (Procalcitonin) Urgent (15:05 06/03/2017 EKoroleva P.A.-C) (Ack 15:06 LNations ER Tech1) (15:29 DDean R.N.) Lactate, Serum Urgent (15:05 06/03/2017 EKoroleva P.A.-C) (Ack 15:06 LNations ER Tech1) (15:29 DDean R.N.) US Abdomen Limited (No) Urgent (15:55 06/03/2017 EKoroleva P.A.-C) (Ack 15:57 LNations ER Tech1) (16:51 LWhalen R.N.) CT Abd/Pel wo Cont Urgent (17:46 06/03/2017 EKoroleva P.A.-C) (Ack 17:47 LNations ER Tech1) (18:11 Devan) MEDICATION ORDERS: Phenergan IV 12.5 mg (HIGH ALERT MEDICATION, NOW) (15:33 06/03/2017 EKoroleva P.A.-C) (Ack 15:34 Anayeli R.N.) (16:18 DDean R.N.) - (oxycodone) (18:33 06/03/2017 EKoroleva P.A.-C) (Cancelled: Other18:36 EKoroleva P.A.-C) - (oxycodone 5 mg po now) (18:36 06/03/2017 EKoroleva P.A.-C) (Ack 18:38 Festuseck R.N.) (19:02 DDean R.N.) IV FLUIDS: IV NS : initial bolus 1000 mL (1000 mL/hr), then 1000 mL/hr for X1 (NOW); Sean (15:05 06/03/2017 EKoroleva P.A.-C) (Ack 15:29 DDean R.N.) (15:31 DDean R.N.) Dilaudid IV 1 mg (HIGH ALERT MEDICATION, NOW) (15:31 06/03/2017 EKoroleva P.A.-C) (Ack 15:32 Anayeli R.N.) (16:18 DDean R.N.) Dilaudid IV 1 mg (HIGH ALERT MEDICATION, NOW) (16:41 06/03/2017 EKoroleva P.A.-C) (16:51 LWhalimaen R.N.) Dilaudid IV 1 mg (HIGH ALERT MEDICATION, NOW) (17:38 06/03/2017 EKoroleva P.A.-C) (17:42 DDean R.N.) Ceftriaxone IV 2 gm/50mL (NOW) (18:33 06/03/2017 EKoroleva P.A.-C) (Ack 18:38 Festuseck R.N.) (19:03 DDean R.N.) ORDER SHEET NOTES: [Electronically signed by Linda EspinozaACarolin-C (20:41 06/03/2017)] [Electronically signed by Cierra Nelson R.N. (21:01 06/03/2017)] [Electronically locked/signed by Cierra Nelson R.N. (21:06/03/2017)]
--- NOTE | 2017-06-03 19:45 | ED NURSING NOTES ---
Clinical Report - Nurses [facility] [address] [place] [address] 06/03/2017 14:32 Patient: MIRTHA ALEXANDER TRIAGE Triage time 1448. Acuity: LEVEL 3. Chief Complaint: (pt in c/o worsening pain from kidney infection. states she was here 2 days ago with UTI, and in march for kidney stone). --15:03 Cierra Nelson R.N. 14:48 06/03/17. BP: 87/57. HR: 75. RR: 18. O2 saturation: 100%. Temp: 98 F. Pain level now: 07/06. --15:03 Cierra Nelson R.N. Weight: 77.1 kg stated. Height/Length: 64 inches Per Patient. BMI: 29.2. --15:02 Cierra Nelson R.N. Medications Clonazepam. Lomotil Oral. MS Contin Oral (Tablet Extended Release 15 mg) 1 tablet, daily. Vicodin Oral 5 mg, 2x a day. --15:02 Cierra Nelson R.N. Cipro 500mg bid. --15:03 Cierra Nelson R.N. Allergies BuSpar. Morphine IV. NSAIDs. plastic tape . Sulfa Antibiotics. Topamax. Toradol. --15:02 Cierra Nelson R.N. History Arrived by private vehicle. Historian: patient. Accompanied by friend. Primary physician (emma). The patient has had abdominal pain and flank pain. SOCIAL HX: Light tobacco smoker (cigarette)- less than 1/2 a pack per day. Occasional alcohol use. History of drug use: marijuana. --15:03 Cierra Nelson R.N. PROBLEMS: Ureterolithiasis. Irritable Bowel Syndrome. Gastritis. Auto immune problem. Palpitations. Dental Pain. Dehydration. Supraventricular arrhythmia. Cervical Strain. Myofascial Strain. Allergic Reaction. Seizure. Urinary Calculi. Pyelonephritis. ADD - Attention Deficit Disorder. Depression. Post tramatic stress. Anxiety Reaction. Seizure Disorder. Nephrolithiasis. Endometriosis. Degenerative Joint Disease. Ovarian Cyst. --15:02 Cierra Nelson R.N. ADDITIONAL SURGERIES: Adenoidectomy. Appendectomy. Bowel Surgery. Breast reducion. . Cysts removed from ovary. Endometriosis cauterizations. Fracture Repair. Lithotripsy. Tonsillectomy & Adenoidectomy. Vericose veins removed bilateral legs. --15:02 Cierra Nelson R.N. Interventions ID band on patient. To treatment room. --15:03 Cierra Nelson R.N. PHYSICAL ASSESSMENT 14:48. Ambulatory to room. Patient gowned. GENERAL / NEURO / PSYCH: Alert. Oriented X 4. Appears in pain. RESPIRATORY: Respirations not labored. CVS: Capillary refill less than 2 seconds. GI / : Abdominal tenderness. Hematuria noted. SKIN: Skin is warm and dry. --15:04 Cierra Nelson R.N. NURSING PROGRESS NOTES 14:48. Patient gowned. Head of bed elevated. Reassurance given. Patient identifiers checked. Call light placed in reach. Side rails up. Bed placed in lowest position. Patient ready for evaluation- chart flagged. --15:04 Cierra Nelson R.N. 15:05 06/03/17. Patient ID band checked for patient name and birthdate: patient confirmed. Clean catch urine collected with return of yellow-colored urine; sample sent to lab for urinalysis and culture. Specimen labeled in the presence of the patient. --15:05 Cierra Nelson R.N. 15:15 06/03/2017 Site #1 started via IV in the left antecubital space with an 20g angiocath, with aseptic technique and good blood return; one attempt. Blood drawn: rainbow set. Labeled in the presence of the patient and sent to the lab. Saline lock flushed with 10 mL saline. --15:28 Cierra Nelson R.N. 15:15 IV start and blood sent to lab. --15:30 Cierra Nelson R.N. 15:25 06/03/2017 Started bag #1 1000 mL IV Fluids IV NS (Saline); at 1000 mL/hr over 1 hour(s) via site #1 via IV pump. --15:31 Cierra Nelson R.N. 15:32 06/03/2017 PHENERGAN (Promethazine HCl) IVP 12.5 mg given over 1 minute(s) via site #1. IV patency established. IV site checked: no pain, redness, or swelling. IV flushed thoroughly pre- and post-medication administration. IVP given by RN. --16:18 Cierra Nelson R.N. 15:33 06/03/2017 Dilaudid (HYDROmorphone HCl PF) IVP 1 mg given over 1 minute(s) via site #1. IV patency established. IV site checked: no pain, redness, or swelling. IV flushed thoroughly pre- and post-medication administration. IVP given by RN. --16:18 Cierra Nelson R.N. 16:10 06/03/17. BP: 111/77. HR: 72. RR: 18. O2 saturation: 100%. Temp: deferred. Pain level now: 7/10. Additional comments: pt resting quietly in bed, SO at bedside . --16:19 Cierra Nelson R.N. 16:51 06/03/2017 Dilaudid (HYDROmorphone HCl PF) IVP 1 mg given over 2 minute(s) via site #1. Allergies verified, confirmed 5 rights and sedative warning given to the patient and patient's family. IV patency established. IV site checked: no pain, redness, or swelling. IV flushed thoroughly pre- and post-medication administration. --16:51 Mahin Park R.N. 17:04 06/03/17. The patient is calm and resting quietly. Overall patient status is the same- she states feels the same. --17:04 Jesi Prince R.N. 17:15. ( US at bedside doing exam). --17:23 Cierra Nelson R.N. 17:33 06/03/2017 IV Fluids IV NS Bag Change: bag #1 infused. Total amount infused: 1000. STARTED bag #2 at 1000 mL/hr via IV pump. IV patency established. IV site checked: no pain, redness, or swelling. IV flushed thoroughly. --17:33 Cierra Nelson R.N. 17:30 06/03/17. BP: 102/70. HR: 70. RR: 18. O2 saturation: 100%. Temp: deferred. Pain level now: 8/10. Additional comments: pt states pain had been down to 5/10, but is now 8/10 after US "poking on me" ERPA notified, meds given . --17:42 Cierra Nelson R.N. 17:39 06/03/2017 Dilaudid (HYDROmorphone HCl PF) IVP 1 mg given over 1 minute(s) via site #1. IV patency established. IV site checked: no pain, redness, or swelling. IV flushed thoroughly pre- and post-medication administration. IVP given by RN. --17:43 Cierra Nelson R.N. 17:48. ( Pt given ice chips per ERPA). --17:52 Cierra Nelson R.N. 17:51. [facility] [employer]. --17:52 Cierra Nelson R.N. 18:50 06/03/2017 Percocet (Oxycodone-Acetaminophen) PO 5/325 mg Tablets 1 tab given. Sedative warning given to the patient. --19:02 Cierra Nelson R.N. 18:51 06/03/2017 Started 2 gm of Ceftriaxone IVPB in bag #1 50 mL; at 150 mL/hr over 20 minute(s) via site #1 via IV pump. --19:03 Cierra Nelson R.N. 19:10 06/03/2017 Ceftriaxone IVPB Discontinued: bag #1 infused. Total amount infused: 50 mL. IV patency established. IV site checked: no pain, redness, or swelling. IV flushed thoroughly. --19:21 Cierra Nelson R.N. 19:50 06/03/2017 Site #1 removed upon discharge. Bandage applied. --21:00 Cierra Nelson R.N. 19:50 06/03/2017 IV Fluids IV NS Discontinued: bag #2 infused upon discharge. Total amount infused: 1000 mL. IV patency established. IV site checked: no pain, redness, or swelling. IV flushed thoroughly. --21:00 Cierra Nelson R.N. DISPOSITION / DISCHARGE 20:00. Condition at departure: stable. No learning barriers present. Discharge instructions provided and reviewed with the patient. Reviewed medication(s) (zofran, keflex, reglan, oxycodone). Patient verbalized understanding. Written instructions provided in Monegasque. The patient was discharged home and accompanied by sig other. She left the Emergency Department ambulatory and via private vehicle. Driving (sig other). --20:59 Cierra Nelson R.N. 20:00 06/03/17. BP: 115/74. HR: 62. RR: 18. O2 saturation: 99%. Temp: deferred. Pain level now: 06/05. --20:59 Cierra Nelson R.N. 20:00. AVEL COMA SCORE: Lackey Coma Scale: 15- eyes open spontaneously (4); best verbal response- oriented x 4 (5); best motor response- obeys commands (6). --20:59 Cierra Nelson R.N. Locked/Released at 06/03/2017 21:01 by Cierra Nelson R.N.
--- NOTE | 2017-06-03 19:45 | ED CLINICAL REPORT ---
Clinical Report - Physicians/Mid Levels [facility] [address] [place] [address] 06/03/2017 14:32 Patient: MIRTHA ALEXANDER Time Seen: 16:00 Jun 03 2017. Arrived- By private vehicle. Historian- patient and significant other. HISTORY OF PRESENT ILLNESS Chief Complaint: ABDOMINAL PAIN. This started 5 days and is still present. It is described as "pain". The patient has had nausea. No vomiting. (patient with right flank pain continued since last visit here. Reports decreased appetite. Decreased appetite. Weakness. Sick contacts. Recently here in the emergency department. Currently taking Cipro. Denies diarrhea. Denies any pain worsened by eating specifically.). REVIEW OF SYSTEMS No constipation, hematemesis, difficulty with urination or chest pain. She has had pain on urination. All systems otherwise negative, except as recorded above. PAST HISTORY Problems: Ureterolithiasis. Irritable Bowel Syndrome. Gastritis. Auto immune problem. Palpitations. Dental Pain. Dehydration. Supraventricular arrhythmia. Changed Mental Status. Cervical Strain. Contusion. Tetanus Status. Allergic Reaction. Seizure. Urinary Calculi. Pyelonephritis. Pelvic Pain. UTI - Urinary Tract Infection. Constipation. Seizure Disorder. Immunizations. Abdominal Pain. Nephrolithiasis. LNMP - Last Normal Menstrual Period. Endometriosis. Degenerative Joint Disease. Ovarian Cyst. Additional Surgeries: Adenoidectomy. Appendectomy. Bowel Surgery. Breast reducion. . Cysts removed from ovary. Endometriosis cauterizations. Fracture Repair. Internal Defibrillator. Lithotripsy. Tonsillectomy. Tonsillectomy & Adenoidectomy. Vericose veins removed bilateral legs. Medications: Cipro 500mg bid. Clonazepam. Lomotil Oral. MS Contin Oral (Tablet Extended Release 15 mg) 1 tablet, daily. Vicodin Oral 5 mg, 2x a day. Allergies: BuSpar. Morphine IV. NSAIDs. plastic tape . Sulfa Antibiotics. Topamax. Toradol. SOCIAL HISTORY Current every day light tobacco smoker. Alcohol use. History of drug use: marijuana. ADDITIONAL NOTES The nursing notes have been reviewed. PHYSICAL EXAM Vital Signs: 06/03/2017 14:48 BP: 87/57. HR: 75. RR: 18. O2 saturation: 100%. Temp: 98 F. Pain level now: 8/10. Appearance: Alert. ENT: Ears normal. Nose normal. Neck: Normal inspection. No carotid bruit or lymphadenopathy. CVS: Normal heart rate and rhythm. Heart sounds normal. No cardiac murmur. Respiratory: No respiratory distress. Breath sounds normal. No decreased air movement. Abdomen: Moderate tenderness in the right side of the abdomen and right lower quadrant with guarding present. Back: Normal inspection. No CVA tenderness. Skin: Skin warm. Normal skin color. Neuro: Oriented X 3. LABS, X-RAYS, AND EKG Abdominal CT: IMPRESSION: 1. 2 mm nonobstructing right lower pole intrarenal calculus. 2. No evidence of obstructive uropathy. 3. Status post tubal ligation. 4. Findings called to the emergency room. All CT scans at this facility use dose modulation, iterative reconstruction, and/or weight-based dosing when appropriate to reduce radiation dose to as low as reasonably achievable. Electronically Final signed by:Sury Ingram MD 04/06/2017 4:26:35 PM. Abdominal Sonogram: (IMPRESSION: 1. Right renal mid to lower pole echogenic artifact versus nonobstructing calculus. Electronically Final signed by:Mello Yusuf MD 06/03/2017 6:26:39 PM). Laboratory Tests: UA-Culture if indicated: (BRIGIDA: 06/03/2017 15:00) ( MsgRcvd 06/03/2017 15:45) Final results Test Result Flag Units (Reference) URINE COLOR YELLOW URINE APPEARANCE SL CLOUDY URINE GLUCOSE NEGATIVE (NEGATIVE) URINE BILIRUBIN 1+ (NEGATIVE) URINE KETONE NEGATIVE (NEGATIVE) URINE SPECIFIC GRAVITY 1.015 (1.010-1.030) URINE PH 6.0 (5.0-8.0) URINE PROTEIN NEGATIVE (NEGATIVE) URINE UROBILINOGEN 0.2 EU/dL (0.2-1.0) URINE NITRITE NEGATIVE (NEGATIVE) URINE BLOOD NEGATIVE (NEGATIVE) URINE LEUK ESTERASE NEGATIVE (NEGATIVE) URINE RBC NONE SEEN rbc/hpf (0-1) URINE WBC 5-10 wbc/hpf (0-1) URINE EPITHELIAL CELLS 10-15 EPI/hpf (0-5) URINE BACTERIA MODERATE (2+ TO 3+) (NONE SEEN) URINE COMMENT CULTURE INDICATED ICTO TEST NEGATIVEURINE CULTURES ARE SET-UP BASED ON THE FOLLOWING CRITERIA:POSITIVE NITRITEPOSITIVE LEUKOCYTE ESTERASEGREATER THAN 10 WHITE BLOOD CELLSMODERATE (2+) OR GREATER BACTERIA CBC w Diff: (BRIGIDA: 06/03/2017 15:15) ( [facility] 06/03/2017 15:37) Final results Test Result Flag Units (Reference) WHITE BLOOD COUNT 12.6 H K/uL (4.5-11.5) RED BLOOD COUNT 3.78 L M/uL (4.00-5.20) HEMOGLOBIN 11.8 L gm/dL (12.0-16.0) HEMATOCRIT 35.3 L % (36.0-46.0) MEAN CELL VOLUME 93 fL (80-100) MEAN CORPUSCULAR HGB 31 pg (26-34) MEAN CORPUSCULAR HGB CONC 34 g/dL (31-37) RED CELL DISTRIBUTION WIDTH 13.6 % (11.6-14.8) PLATELET COUNT 326 K/uL (150-400) NEUTROPHIL % 70.9 % (50-75) LYMPH % 15.8 L % (25-40) MONO % 11.8 % (3-14) EOSINOPHIL % 1.1 % (0-4) BASOPHIL % 0.4 % (0-2) Lactate, Serum: (BRIGIDA: 06/03/2017 15:15) ( [facility] 06/03/2017 15:58) Final results Test Result Flag Units (Reference) LACTIC ACID 0.6 mmol/L (0.4-2.0) [id number]: (BRIGIDA: 06/03/2017 15:15) ( [facility] 06/03/2017 16:21) Final results Test Result Flag Units (Reference) PROCALCITONIN <0.5 ng/mL (0-0.5) PCT Concentration: Interpretation : Risk/option for action PCT <=0.5 ng/mL : Systemic : Low risk forinfection(sepsis): progression to severeis not likely. : systemic infection.Local bacterial : CAUTION-PCT levelsinfection is : below 0.5 ng/mL do notpossible. : exclude an infection,because localizedinfections (withoutsystemic signs) may beassociated with suchlow levels. If PCT ismeasured very earlyafter a bacterialchallenge (usually <6hours), these valuesmay still be low. Inthis case PCT shouldbe re-assessed 6-24hours later. PCT >0.5 and : Systemic infection: Moderate risk for<= 2 ng/mL : (sepsis) is : progression to severepossible, but : systemic infection.other conditions : The patient should beare known to : closely monitoredelevate PCT. : both clinically andby re-assessing PCTwithin 6-24 hours. PCT > 2 ng/mL : Systemic infection: High risk for(sepsis) is likely: progression to severeunless other : systemic infection.causes are known. : PCT >= 10 ng/mL : Important systemic: High likelihood ofinflammatory : severe sepsis orresponse, almost : septic shock.exclusively due to:severe bacterial :sepsis or septic :shock. : CMP: (BRIGIDA: 06/03/2017 15:15) ( MsgRcvd 06/03/2017 15:54) Final results Test Result Flag Units (Reference) GLUCOSE 86 mg/dL (70-110) BUN 10 mg/dL (7-18) CREATININE 0.8 mg/dL (0.6-1.3) Estimated GFR >60 mL/min Estimated GFR- >60 mL/min Note: Persistent reduction over 3 months in eGFR<60 mL/min/1.73 m2 defines CKD. Patients with eGFR values>=60 mL/min/1.73 m2 may also have CKD if evidence ofpersistent proteinuria. Additional information may be foundat www.kidney.org. SODIUM 140 mmol/L (136-145) POTASSIUM 3.7 mmol/L (3.5-5.1) CHLORIDE 105 mmol/L (98-107) CARBON DIOXIDE 27 mmol/L (21-32) CALCIUM 8.4 L mg/dL (8.5-10.1) TOTAL PROTEIN 6.9 g/dL (6.4-8.2) ALBUMIN 2.9 L g/dL (3.3-5.0) BILIRUBIN, TOTAL 0.4 mg/dL (0.0-1.0) ALKALINE PHOSPHATASE 122 H U/L (46-116) AST (SGOT) 82 H U/L (15-37) ALT (SGPT) 109 H U/L (12-78) . PROGRESS AND PROCEDURES Course of Care: Here in the ER patient with flank pain. Extensive workup given her elevated LFT, with ultrasound whCen without contrast was also unremarkable. Patient with negative procalcitonin. Negative lactic. Awaiting culture of the urine. Patient given ceftriaxone 2 g IV as well as IV hydration. Nonseptic. No signs of acute surgical abdomen. 06/03/2017 17:30 BP: 102/70. HR: 70. RR: 18. O2 saturation: 100%. Pain level now: 8/10. Patient is stable. Symptoms better. Patient/family counseled. Disposition: Discharged. CLINICAL IMPRESSION Acute right flank pain Elevated LFT. INSTRUCTIONS Drink plenty of fluids. Prescription Medications: Zofran (orally disintegrating tablets) 4 mg: take 1 orally every 6 hours for 3 days as needed for nausea. No refill. Cephalexin 500 mg: take 1 capsule orally every 8 hours for 10 days. No refill. Reglan 10 mg tablets: take 1 orally every 8 hours for 3 days as needed for nausea or vomiting. Dispense ten (10). No refills. Oxycodone 5 mg tablets: take 1 orally every 6 hours as needed for pain. Dispense fifteen (15). No refill. Follow-up: Follow up with your doctor Monday. (Electronically signed by Linda Espinoza P.A.-C 06/03/2017 20:41)
--- NOTE | 2017-06-03 19:45 | ED ORDER SUMMARY ---
..... Patient: MIRTHA ALEXANDER OrderSheet [facility] VisitID: [id number] [address] [place] [address] 36y, F Registration Date/Time: 06/03/2017 ORDER SHEET Weight: 77.1 kg (stated) Allergies: BuSpar, Morphine IV, NSAIDs, plastic tape , Sulfa Antibiotics, Topamax, Toradol GENERAL ORDERS: CBC w Diff Urgent (15:05 06/03/2017 EKoroleva P.A.-C) (Ack 15:06 LNations ER Tech1) (15:29 DDean R.N.) CMP Urgent (15:05 06/03/2017 EKoroleva P.A.-C) (Ack 15:06 LNations ER Tech1) (15:29 DDean R.N.) UA-Culture if indicated Urgent (15:05 06/03/2017 EKoroleva P.A.-C) (Ack 15:06 LNations ER Tech1) (15:29 DDean R.N.) PCT (Procalcitonin) Urgent (15:05 06/03/2017 EKoroleva P.A.-C) (Ack 15:06 LNations ER Tech1) (15:29 DDean R.N.) Lactate, Serum Urgent (15:05 06/03/2017 EKoroleva P.A.-C) (Ack 15:06 LNations ER Tech1) (15:29 DDean R.N.) US Abdomen Limited (No) Urgent (15:55 06/03/2017 EKoroleva P.A.-C) (Ack 15:57 LNations ER Tech1) (16:51 LWhalen R.N.) CT Abd/Pel wo Cont Urgent (17:46 06/03/2017 EKoroleva P.A.-C) (Ack 17:47 LNations ER Tech1) (18:11 Devan) MEDICATION ORDERS: Phenergan IV 12.5 mg (HIGH ALERT MEDICATION, NOW) (15:33 06/03/2017 EKoroleva P.A.-C) (Ack 15:34 Anayeli R.N.) (16:18 DDean R.N.) - (oxycodone) (18:33 06/03/2017 EKoroleva P.A.-C) (Cancelled: Other18:36 EKoroleva P.A.-C) - (oxycodone 5 mg po now) (18:36 06/03/2017 EKoroleva P.A.-C) (Ack 18:38 Festuseck R.N.) (19:02 DDean R.N.) IV FLUIDS: IV NS : initial bolus 1000 mL (1000 mL/hr), then 1000 mL/hr for X1 (NOW); Sean (15:05 06/03/2017 EKoroleva P.A.-C) (Ack 15:29 DDean R.N.) (15:31 DDean R.N.) Dilaudid IV 1 mg (HIGH ALERT MEDICATION, NOW) (15:31 06/03/2017 EKoroleva P.A.-C) (Ack 15:32 Anayeli R.N.) (16:18 DDean R.N.) Dilaudid IV 1 mg (HIGH ALERT MEDICATION, NOW) (16:41 06/03/2017 EKoroleva P.A.-C) (16:51 LWhalimaen R.N.) Dilaudid IV 1 mg (HIGH ALERT MEDICATION, NOW) (17:38 06/03/2017 EKoroleva P.A.-C) (17:42 DDean R.N.) Ceftriaxone IV 2 gm/50mL (NOW) (18:33 06/03/2017 EKoroleva P.A.-C) (Ack 18:38 Festuseck R.N.) (19:03 DDean R.N.) ORDER SHEET NOTES: [Electronically signed by Linda EspinozaACarolin-C (20:41 06/03/2017)] [Electronically signed by Cierra Nelson R.N. (21:01 06/03/2017)] [Electronically locked/signed by Cierra Nelson R.N. (21:06/03/2017)]
--- NOTE | 2017-06-03 21:01 | ED MED RECONCILIATION SUMMARY ---
Patient: MIRTHA ALEXANDER Medication Reconciliation Report [facility] VisitID: [id number] [address] [place] [address] 36y, F Registration Date/Time: 06/03/2017 Weight: 77.1 kg Height/Length: 64 in. BMI: 29.2 ALLERGIES: BuSpar, Morphine IV, NSAIDs, plastic tape , Sulfa Antibiotics, Topamax, Toradol The patient's Home Medications are listed below: THE FOLLOWING MEDICATIONS NEED TO BE RECONCILED: Cipro 500mg bid Clonazepam Lomotil Oral MS Contin Oral (15 mg) 1 tablet, daily Vicodin Oral 5 mg, 2x a day The source(s) of the original Home Medication information: Not obtained. The following Medications were given to the patient in the Emergency Department: IV NS IV Fluids bolus 0, then 1000 mL/hr, administered: 06/03/2017 3:25:00 PM Dilaudid [IVP] IVP 1 mg, administered: 06/03/2017 3:33:00 PM PHENERGAN [IVP] IVP 12.5 mg, administered: 06/03/2017 3:32:00 PM Dilaudid [IVP] IVP 1 mg, administered: 06/03/2017 4:51:00 PM Dilaudid [IVP] IVP 1 mg, administered: 06/03/2017 5:39:00 PM Percocet [PO] PO 1 tab, administered: 06/03/2017 6:50:00 PM Ceftriaxone [IVPB] IVPB bolus 0, then 2 gm 150 mL/hr, administered: 06/03/2017 6:51:00 PM The following Medications were prescribed to the patient: Zofran (orally disintegrating tablets) 4 mg: take 1 orally every 6 hours for 3 days as needed for nausea. No refill. -- Truongolecnida, Linda, P.A.-C Cephalexin 500 mg: take 1 capsule orally every 8 hours for 10 days. No refill. -- Truongolecinda, Linda, P.A.-C Reglan 10 mg tablets: take 1 orally every 8 hours for 3 days as needed for nausea or vomiting. Dispense ten (10). No refills. -- Linda Espinoza, P.A.-C Oxycodone 5 mg tablets: take 1 orally every 6 hours as needed for pain. Dispense fifteen (15). No refill. -- Linda Espinoza P.A.-C
--- NOTE | 2017-06-03 21:01 | ED MAR SUMMARY ---
..... Medication Administration Record [facility] [address] [place] [address] Patient: MIRTHA ALEXANDER Visit ID: [id number] 36y, F Weight: 77.1 kg Height/Length: 64 in BMI: 29.2 ALLERGIES: BuSpar, Morphine IV, NSAIDs, plastic tape , Sulfa Antibiotics, Topamax, Toradol Start 15:25 06/03/2017 Cierra Nelson R.N., Stop 19:50 06/03/2017 Cierra Nelson R.N. Medication Administered: IV NS (SALINE), Dose: IV Fluids over 1 hour(s), Rate: 1000 mL/hr, Dispensed: 1000 mL bag, Site: #1 left AC. Medication Ordered: IV NS : initial bolus 1000 mL (1000 mL/hr), then 1000 mL/hr for X1 (NOW); Sean. Given 15:32 06/03/2017 Cierra Nelson R.N. Medication Administered: PHENERGAN [IVP] (PROMETHAZINE HCL), Dose: 12.5 mg IVP over 1 minute(s), Site: #1 left AC. Medication Ordered: Phenergan IV 12.5 mg (HIGH ALERT MEDICATION, NOW). Given 15:33 06/03/2017 Cierra Nelson R.N. Medication Administered: DILAUDID [IVP] (HYDROMORPHONE HCL PF), Dose: 1 mg IVP over 1 minute(s), Site: #1 left AC. Medication Ordered: Dilaudid IV 1 mg (HIGH ALERT MEDICATION, NOW). Given 16:51 06/03/2017 Mahin Park R.N. Medication Administered: DILAUDID [IVP] (HYDROMORPHONE HCL PF), Dose: 1 mg IVP over 2 minute(s), Site: #1 left AC. Medication Ordered: Dilaudid IV 1 mg (HIGH ALERT MEDICATION, NOW). Given 17:39 06/03/2017 Cierra Nelson R.N. Medication Administered: DILAUDID [IVP] (HYDROMORPHONE HCL PF), Dose: 1 mg IVP over 1 minute(s), Site: #1 left AC. Medication Ordered: Dilaudid IV 1 mg (HIGH ALERT MEDICATION, NOW). Given 18:50 06/03/2017 Cierra Nelson R.N. Medication Administered: PERCOCET [PO] (OXYCODONE-ACETAMINOPHEN), Dose: 1 tab 5/325 mg Tablets PO. Medication Ordered: - (oxycodone 5 mg po now). Start 18:51 06/03/2017 Cierra Nelson R.N., Stop 19:10 06/03/2017 Cierra Nelson R.N. Medication Administered: CEFTRIAXONE [IVPB], Dose: 2 gm IVPB over 20 minute(s), Rate: 150 mL/hr, Dispensed: 50 mL bag, Site: #1 left AC. Medication Ordered: Ceftriaxone IV 2 gm/50mL (NOW).
--- NOTE | 2017-06-03 21:01 | ED DISCHARGE INSTRUCTIONS ---
Patient: MIRTHA ALEXANDER General Instructions [facility] VisitID: [id number] [place] [address] 36y, F Registration Date/Time: 06/03/2017 Acute right flank pain Elevated LFT. INSTRUCTIONS Drink plenty of fluids. Prescription Medications: Zofran (orally disintegrating tablets) 4 mg: take 1 orally every 6 hours for 3 days as needed for nausea. No refill. Cephalexin 500 mg: take 1 capsule orally every 8 hours for 10 days. No refill. Reglan 10 mg tablets: take 1 orally every 8 hours for 3 days as needed for nausea or vomiting. Dispense ten (10). No refills. Oxycodone 5 mg tablets: take 1 orally every 6 hours as needed for pain. Dispense fifteen (15). No refill. Follow-up: Follow up with your doctor Monday. ADDITIONAL INFORMATION Kidney Infection [Adult, Female] An infection of the kidney is also called "pyelonephritis". It usually starts as a bladder infection ("cystitis") which spreads to the kidneys. Pyelonephritis is more serious than a bladder infection. It can cause severe illness if not treated properly. The usual symptoms include an aching pain in the back, side or lower abdomen. Other symptoms may include fever, chills, nausea, vomiting, an urge to urinate and a burning sensation when passing urine. Home Care: Stay home from work or school. Rest in bed until your fever breaks and you are feeling better. Drink lots of fluid (at least 6-8 glasses a day, unless you must restrict fluids for other medical reasons). This will force the medicine into your urinary system and flush the bacteria out of your body. Avoid sexual intercourse until you have finished all of your medicine and your symptoms have gone away. Avoid caffeine, alcohol and spicy foods which may irritate the kidney and bladder. You may use acetaminophen (Tylenol) or ibuprofen (Motrin, Advil) to control pain, unless another pain medicine was prescribed. [NOTE: If you have chronic liver or kidney disease or ever had a stomach ulcer or GI bleeding, talk with your doctor before using these medicines.] Follow Up with your doctor or as advised by our staff for a repeat urine test in 10 days. This will ensure that your infection is fully cleared. [NOTE: If you had an X-ray or CT scan, it will be reviewed by a specialist. You will be notified of any new findings that may affect your care.] Get Prompt Medical Attention if any of the following occur: Fever over 100.4F (38.0C) after 48 hours of treatment No improvement by the third day of treatment Increasing back or abdominal pain Repeated vomiting or inability to take oral medicine Weakness, dizziness or fainting Cephalexin Monohydrate Oral tablet What is this medicine? CEPHALEXIN (sef a TARSHA in) is a cephalosporin antibiotic. It is used to treat certain kinds of bacterial infections It will not work for colds, flu, or other viral infections. How should I use this medicine? Take this medicine by mouth with a full glass of water. Follow the directions on the prescription label. This medicine can be taken with or without food. Take your medicine at regular intervals. Do not take your medicine more often than directed. Take all of your medicine as directed even if you think you are better. Do not skip doses or stop your medicine early. Talk to your features reporter regarding the use of this medicine in children. While this drug may be prescribed for selected conditions, precautions do apply. What side effects may I notice from receiving this medicine? Side effects that you should report to your doctor or health child care center administrator as soon as possible: allergic reactions like skin rash, itching or hives, swelling of the face, lips, or tongue breathing problems pain or trouble passing urine redness, blistering, peeling or loosening of the skin, including inside the mouth severe or watery diarrhea unusually weak or tired yellowing of the eyes, skin Side effects that usually do not require medical attention (report to your doctor or health child care center administrator if they continue or are bothersome): gas or heartburn genital or anal irritation headache joint or muscle pain nausea, vomiting What may interact with this medicine? probenecid some other antibiotics What if I miss a dose? If you miss a dose, take it as soon as you can. If it is almost time for your next dose, take only that dose. Do not take double or extra doses. There should be at least 4 to 6 hours between doses. Where should I keep my medicine? Keep out of the reach of children. Store at room temperature between 59 and 86 degrees F (15 and 30 degrees C). Throw away any unused medicine after the expiration date. What should I tell my health care provider before I take this medicine? They need to know if you have any of these conditions: kidney disease stomach or intestine problems, especially colitis an unusual or allergic reaction to cephalexin, other cephalosporins, penicillins, other antibiotics, medicines, foods, dyes or preservatives or trying to get breast-feeding What should I watch for while using this medicine? Tell your doctor or health child care center administrator if your symptoms do not begin to improve in a few days. Do not treat diarrhea with over the counter products. Contact your doctor if you have diarrhea that lasts more than 2 days or if it is severe and watery. If you have diabetes, you may get a false-positive result for sugar in your urine. Check with your doctor or health child care center administrator. You have been given the following additional information: Pyelonephritis, Female (Adult) Cephalexin Monohydrate Oral tablet (Electronically signed by Linda Espinoza P.A.-C 06/03/2017 20:41)
--- NOTE | 2017-06-03 21:01 | ED MAR SUMMARY ---
..... Medication Administration Record [facility] [address] [place] [address] Patient: MIRTHA ALEXANDER Visit ID: [id number] 36y, F Weight: 77.1 kg Height/Length: 64 in BMI: 29.2 ALLERGIES: BuSpar, Morphine IV, NSAIDs, plastic tape , Sulfa Antibiotics, Topamax, Toradol Start 15:25 06/03/2017 Cierra Nelson R.N., Stop 19:50 06/03/2017 Cierra Nelson R.N. Medication Administered: IV NS (SALINE), Dose: IV Fluids over 1 hour(s), Rate: 1000 mL/hr, Dispensed: 1000 mL bag, Site: #1 left AC. Medication Ordered: IV NS : initial bolus 1000 mL (1000 mL/hr), then 1000 mL/hr for X1 (NOW); Sean. Given 15:32 06/03/2017 Cierra Nelson R.N. Medication Administered: PHENERGAN [IVP] (PROMETHAZINE HCL), Dose: 12.5 mg IVP over 1 minute(s), Site: #1 left AC. Medication Ordered: Phenergan IV 12.5 mg (HIGH ALERT MEDICATION, NOW). Given 15:33 06/03/2017 Cierra Nelson R.N. Medication Administered: DILAUDID [IVP] (HYDROMORPHONE HCL PF), Dose: 1 mg IVP over 1 minute(s), Site: #1 left AC. Medication Ordered: Dilaudid IV 1 mg (HIGH ALERT MEDICATION, NOW). Given 16:51 06/03/2017 Mahin Park R.N. Medication Administered: DILAUDID [IVP] (HYDROMORPHONE HCL PF), Dose: 1 mg IVP over 2 minute(s), Site: #1 left AC. Medication Ordered: Dilaudid IV 1 mg (HIGH ALERT MEDICATION, NOW). Given 17:39 06/03/2017 Cierra Nelson R.N. Medication Administered: DILAUDID [IVP] (HYDROMORPHONE HCL PF), Dose: 1 mg IVP over 1 minute(s), Site: #1 left AC. Medication Ordered: Dilaudid IV 1 mg (HIGH ALERT MEDICATION, NOW). Given 18:50 06/03/2017 Cierra Nelson R.N. Medication Administered: PERCOCET [PO] (OXYCODONE-ACETAMINOPHEN), Dose: 1 tab 5/325 mg Tablets PO. Medication Ordered: - (oxycodone 5 mg po now). Start 18:51 06/03/2017 Cierra Nelson R.N., Stop 19:10 06/03/2017 Cierra Nelson R.N. Medication Administered: CEFTRIAXONE [IVPB], Dose: 2 gm IVPB over 20 minute(s), Rate: 150 mL/hr, Dispensed: 50 mL bag, Site: #1 left AC. Medication Ordered: Ceftriaxone IV 2 gm/50mL (NOW).
--- NOTE | 2017-06-03 21:01 | ED DISCHARGE INSTRUCTIONS ---
Patient: MIRTHA ALEXANDER General Instructions [facility] VisitID: [id number] [place] [address] 36y, F Registration Date/Time: 06/03/2017 Acute right flank pain Elevated LFT. INSTRUCTIONS Drink plenty of fluids. Prescription Medications: Zofran (orally disintegrating tablets) 4 mg: take 1 orally every 6 hours for 3 days as needed for nausea. No refill. Cephalexin 500 mg: take 1 capsule orally every 8 hours for 10 days. No refill. Reglan 10 mg tablets: take 1 orally every 8 hours for 3 days as needed for nausea or vomiting. Dispense ten (10). No refills. Oxycodone 5 mg tablets: take 1 orally every 6 hours as needed for pain. Dispense fifteen (15). No refill. Follow-up: Follow up with your doctor Monday. ADDITIONAL INFORMATION Kidney Infection [Adult, Female] An infection of the kidney is also called "pyelonephritis". It usually starts as a bladder infection ("cystitis") which spreads to the kidneys. Pyelonephritis is more serious than a bladder infection. It can cause severe illness if not treated properly. The usual symptoms include an aching pain in the back, side or lower abdomen. Other symptoms may include fever, chills, nausea, vomiting, an urge to urinate and a burning sensation when passing urine. Home Care: Stay home from work or school. Rest in bed until your fever breaks and you are feeling better. Drink lots of fluid (at least 6-8 glasses a day, unless you must restrict fluids for other medical reasons). This will force the medicine into your urinary system and flush the bacteria out of your body. Avoid sexual intercourse until you have finished all of your medicine and your symptoms have gone away. Avoid caffeine, alcohol and spicy foods which may irritate the kidney and bladder. You may use acetaminophen (Tylenol) or ibuprofen (Motrin, Advil) to control pain, unless another pain medicine was prescribed. [NOTE: If you have chronic liver or kidney disease or ever had a stomach ulcer or GI bleeding, talk with your doctor before using these medicines.] Follow Up with your doctor or as advised by our staff for a repeat urine test in 10 days. This will ensure that your infection is fully cleared. [NOTE: If you had an X-ray or CT scan, it will be reviewed by a specialist. You will be notified of any new findings that may affect your care.] Get Prompt Medical Attention if any of the following occur: Fever over 100.4F (38.0C) after 48 hours of treatment No improvement by the third day of treatment Increasing back or abdominal pain Repeated vomiting or inability to take oral medicine Weakness, dizziness or fainting Cephalexin Monohydrate Oral tablet What is this medicine? CEPHALEXIN (sef a TARSHA in) is a cephalosporin antibiotic. It is used to treat certain kinds of bacterial infections It will not work for colds, flu, or other viral infections. How should I use this medicine? Take this medicine by mouth with a full glass of water. Follow the directions on the prescription label. This medicine can be taken with or without food. Take your medicine at regular intervals. Do not take your medicine more often than directed. Take all of your medicine as directed even if you think you are better. Do not skip doses or stop your medicine early. Talk to your agronomy teacher regarding the use of this medicine in children. While this drug may be prescribed for selected conditions, precautions do apply. What side effects may I notice from receiving this medicine? Side effects that you should report to your doctor or health ambulatory care nurse as soon as possible: allergic reactions like skin rash, itching or hives, swelling of the face, lips, or tongue breathing problems pain or trouble passing urine redness, blistering, peeling or loosening of the skin, including inside the mouth severe or watery diarrhea unusually weak or tired yellowing of the eyes, skin Side effects that usually do not require medical attention (report to your doctor or health ambulatory care nurse if they continue or are bothersome): gas or heartburn genital or anal irritation headache joint or muscle pain nausea, vomiting What may interact with this medicine? probenecid some other antibiotics What if I miss a dose? If you miss a dose, take it as soon as you can. If it is almost time for your next dose, take only that dose. Do not take double or extra doses. There should be at least 4 to 6 hours between doses. Where should I keep my medicine? Keep out of the reach of children. Store at room temperature between 59 and 86 degrees F (15 and 30 degrees C). Throw away any unused medicine after the expiration date. What should I tell my health care provider before I take this medicine? They need to know if you have any of these conditions: kidney disease stomach or intestine problems, especially colitis an unusual or allergic reaction to cephalexin, other cephalosporins, penicillins, other antibiotics, medicines, foods, dyes or preservatives or trying to get breast-feeding What should I watch for while using this medicine? Tell your doctor or health ambulatory care nurse if your symptoms do not begin to improve in a few days. Do not treat diarrhea with over the counter products. Contact your doctor if you have diarrhea that lasts more than 2 days or if it is severe and watery. If you have diabetes, you may get a false-positive result for sugar in your urine. Check with your doctor or health ambulatory care nurse. You have been given the following additional information: Pyelonephritis, Female (Adult) Cephalexin Monohydrate Oral tablet (Electronically signed by Linda Espinoza P.A.-C 06/03/2017 20:41)
--- NOTE | 2017-06-03 21:01 | ED MED RECONCILIATION SUMMARY ---
Patient: MIRTHA ALEXANDER Medication Reconciliation Report [facility] VisitID: [id number] [address] [place] [address] 36y, F Registration Date/Time: 06/03/2017 Weight: 77.1 kg Height/Length: 64 in. BMI: 29.2 ALLERGIES: BuSpar, Morphine IV, NSAIDs, plastic tape , Sulfa Antibiotics, Topamax, Toradol The patient's Home Medications are listed below: THE FOLLOWING MEDICATIONS NEED TO BE RECONCILED: Cipro 500mg bid Clonazepam Lomotil Oral MS Contin Oral (15 mg) 1 tablet, daily Vicodin Oral 5 mg, 2x a day The source(s) of the original Home Medication information: Not obtained. The following Medications were given to the patient in the Emergency Department: IV NS IV Fluids bolus 0, then 1000 mL/hr, administered: 06/03/2017 3:25:00 PM Dilaudid [IVP] IVP 1 mg, administered: 06/03/2017 3:33:00 PM PHENERGAN [IVP] IVP 12.5 mg, administered: 06/03/2017 3:32:00 PM Dilaudid [IVP] IVP 1 mg, administered: 06/03/2017 4:51:00 PM Dilaudid [IVP] IVP 1 mg, administered: 06/03/2017 5:39:00 PM Percocet [PO] PO 1 tab, administered: 06/03/2017 6:50:00 PM Ceftriaxone [IVPB] IVPB bolus 0, then 2 gm 150 mL/hr, administered: 06/03/2017 6:51:00 PM The following Medications were prescribed to the patient: Zofran (orally disintegrating tablets) 4 mg: take 1 orally every 6 hours for 3 days as needed for nausea. No refill. -- Truongolecinda, Linda, P.A.-C Cephalexin 500 mg: take 1 capsule orally every 8 hours for 10 days. No refill. -- Truongolecinda, Linda, P.A.-C Reglan 10 mg tablets: take 1 orally every 8 hours for 3 days as needed for nausea or vomiting. Dispense ten (10). No refills. -- Linda Espinoza, P.A.-C Oxycodone 5 mg tablets: take 1 orally every 6 hours as needed for pain. Dispense fifteen (15). No refill. -- Linda Espinoza P.A.-C
== END 2017-06-03 20:00 | disposition home or self-care (01) ==
LOC: ED SRH 14:30
DX: R10.9 Unspecified abdominal pain (principal); R94.5 Abnormal results of liver function studies; Z79.899 Other long term (current) drug therapy; Z88.2 Allergy status to sulfonamides; Z88.5 Allergy status to narcotic agent; Z88.8 Allergy status to other drugs, medicaments and biological substances
CPT/HCPCS: 90004; 90100; 90469; 92031; 93004; 95059